=== PATIENT | female | born 1965 | race Two or more races ===

== ENCOUNTER → 2017-02-04 | Outpatient (CLI) | payer MEDICAID ==
--- NOTE | 2017-02-04 13:07 | RADIOLOGY REPORT (SQ) ---
EXAM DESCRIPTION: CHEST PA/LAT COMPLETED DATE/TIME: 02/04/2017 12:36 pm REASON FOR STUDY: WHEEZING (R06.2) COMPARISON: None. EXAM PARAMETERS: NUMBER OF VIEWS: two views TECHNIQUE: Digital Frontal and Lateral radiographic views of the chest acquired. RADIATION DOSE: NA LIMITATIONS: none FINDINGS: LUNGS AND PLEURA: No opacities, masses or pneumothorax. No pleural effusion. MEDIASTINUM AND HILAR STRUCTURES: No masses or contour abnormalities. HEART AND VASCULAR STRUCTURES: Heart normal size. No evidence for failure. BONES: No acute findings. HARDWARE: None in the chest. OTHER: No other significant finding. IMPRESSION: NO SIGNIFICANT RADIOGRAPHIC FINDING IN THE CHEST. TECHNICAL DOCUMENTATION: JOB ID: [id number] [employer]- All Rights Reserved
--- NOTE | 2017-02-04 13:49 | RADIOLOGY REPORT (SQ) ---
EXAM DESCRIPTION: SHOULDER RIGHT 2 OR MORE VIEWS COMPLETED DATE/TIME: 02/04/2017 12:36 pm REASON FOR STUDY: RIGHT SHOULDER PAIN (M25.511) M25.511 PAIN IN RIGHT SHOULDER R06.2 WHEEZING COMPARISON: None. NUMBER OF VIEWS: Three views. TECHNIQUE: Internal rotation, external rotation, and Y view images acquired of the right shoulder. LIMITATIONS: None. FINDINGS: MINERALIZATION: Normal. BONES: No acute fracture or dislocation. No worrisome bone lesions. JOINTS: No dislocation. VISUALIZED LUNGS AND RIBS: No pneumothorax. No rib fracture. SOFT TISSUES: No radiopaque foreign body. OTHER: No other significant finding. IMPRESSION: NEGATIVE STUDY OF THE RIGHT SHOULDER. NO RADIOGRAPHIC EVIDENCE OF ACUTE INJURY. TECHNICAL DOCUMENTATION: JOB ID: [id number] [employer]- All Rights Reserved
== END ==
LOC: RAD 12:14
PROVIDERS: ATTEND Family Medicine Geriatric Medicine
DX: M25.511 Pain in right shoulder (principal); R06.2 Wheezing
CPT/HCPCS: 71020

== ENCOUNTER 2017-02-24 19:26 | Emergency (ER) | payer MEDICAID ==
[2017-02-24 19:36] VITALS: BP 133/81
[2017-02-24] MEDS ORDERED: ONDANSETRON 4 MG TAB.RAPDIS PO ONE (19:57)
[2017-02-24] MEDS ORDERED: KETOROLAC TROMETHAMINE INJ/PF 30 MG/1 ML SDV IV ONE (20:12)
[2017-02-24] MEDS ORDERED: NORMAL SALINE 1000 ML 1,000 ML IV PRN (20:12)
--- NOTE | 2017-02-24 20:14 | ER Document Report ---
ED GI/ - General Chief Complaint: Abdominal Pain Stated Complaint: ABDOMINAL & BACK PAIN Time Seen by Provider: 02/24/17 19:58 Mode of Arrival: Ambulatory Information source: Patient TRAVEL OUTSIDE OF THE [place] IN LAST 30 DAYS: No - HPI Patient complains to provider of: Abdominal pain Onset: Other - 2 weeks Quality of pain: Achy, Cramping Severity at maximum: Moderate Severity in ED: Moderate Pain Level: 4 Location: Other - diffuse Associated symptoms: Nausea Relieved by: Denies Similar symptoms previously: No Recently seen / treated by doctor: No Notes: 02/24/17 20:13 51-year-old female who presents to the emergency room complaining of abdominal pain and cramping that been going on for the past 2 weeks and worsening in severity, she reports is worse when she is having intercourse with her , starts in the right side and radiates to the back and then the left side, she denies any vaginal bleeding or discharge, no blood in her urine or stools, has normal bowel movements on a daily basis, although she does report pressure in her vagina with a sensation of possible prolapse with bowel movements, she also has had some mild incontinence of urine, but denies dysuria or hematuria - Related Data Allergies/Adverse Reactions: Sulfa (Sulfonamide Antibiotics) Allergy (Verified 02/24/17 21:06) Past Medical History - General Information source: Patient - Social History Smoking Status: Current Every Day Smoker Family History: Reviewed & Not Pertinent Patient has suicidal ideation: No Patient has homicidal ideation: No Renal/ Medical History: Denies: Hx Peritoneal Dialysis Review of Systems - Review of Systems Constitutional: No symptoms reported EENT: No symptoms reported Cardiovascular: No symptoms reported Respiratory: No symptoms reported Gastrointestinal: See HPI Genitourinary: See HPI Female Genitourinary: No symptoms reported Musculoskeletal: No symptoms reported Skin: No symptoms reported Hematologic/Lymphatic: No symptoms reported Neurological/Psychological: No symptoms reported -: Yes All other systems reviewed and negative Physical Exam - Vital signs Vitals: Temp Pulse Resp BP Pulse Ox 98.1 F 70 18 133/81 H 95 02/24/17 19:35 02/24/17 19:35 02/24/17 19:35 02/24/17 19:35 02/24/17 19:35 Interpretation: Normal - General General appearance: Appears well, Alert - HEENT Head: Normocephalic, Atraumatic Eyes: Normal Pupils: PERRL - Respiratory Respiratory status: No respiratory distress Chest status: Nontender Breath sounds: Normal Chest palpation: Normal - Cardiovascular Rhythm: Regular Heart sounds: Normal auscultation Murmur: No - Abdominal Inspection: Normal Distension: No distension Bowel sounds: Normal Tenderness: Tender - Mild diffuse tenderness, increased in suprapubic region Organomegaly: No organomegaly - Back Back: Normal, Nontender - Extremities General upper extremity: Normal inspection, Nontender, Normal color, Normal ROM , Normal temperature General lower extremity: Normal inspection, Nontender, Normal color, Normal ROM , Normal temperature, Normal weight bearing. No: Enid's sign - Neurological Neuro grossly intact: Yes Cognition: Normal Orientation: AAOx4 Shahid Coma Scale Eye Opening: Spontaneous [place] Coma Scale Verbal: Oriented [place] Coma Scale Motor: Obeys Commands Shahid Coma Scale Total: 15 Speech: Normal Motor strength normal: LUE, RUE, LLE, RLE Sensory: Normal - Psychological Associated symptoms: Normal affect, Normal mood - Skin Skin Temperature: Warm Skin Moisture: Dry Skin Color: Normal Course - Re-evaluation Re-evalutation: 02/24/17 21:54 Imaging findings discussed with patient at bedside which are unremarkable except for fibroid uterus, she was advised to follow-up with [facility] or return if symptoms worsen, patient acknowledges understanding and agreement with this plan 02/24/17 21:55 - Vital Signs Vital signs: Temp Pulse Resp BP Pulse Ox 98.1 F 70 18 133/81 H 95 02/24/17 19:35 02/24/17 19:35 02/24/17 19:35 02/24/17 19:35 02/24/17 19:35 - Laboratory Result Diagrams: 02/24/17 20:55 02/24/17 20:10 Laboratory results interpreted by me: 02/24/17 02/24/17 02/24/17 20:10 20:39 20:55 RDW 15.2 H Seg Neutrophils % 40.8 L Lymphocytes % 49.0 H Est GFR (Non-Af Amer) 55 L Lipase 374.7 H Urine Urobilinogen 2.0 H - Diagnostic Test Radiology reviewed: Image reviewed, Reports reviewed Discharge - Discharge Clinical Impression: Fibroid Qualifiers: Uterine leiomyoma location: unspecified location Qualified Code(s): D25.9 - Leiomyoma of uterus, unspecified Condition: Stable Disposition: HOME, SELF-CARE Instructions: Pelvic Pain ([facility]), [facility] Additional Instructions: Follow up with your primary care provider in one to 2 days. Return to the emergency room immediately if symptoms worsen or any additional concerns. Prescriptions: Tramadol HCl/Acetaminophen [Ultracet 37.5 mg/325 mg Tablet] 1 each PO Q6 #20 tablet
[2017-02-24 20:34] LABS: ALANINE AMINOTRANSFERASE 25 U/L (9-52); ALBUMIN 4.3 g/dL (3.5-5.0); ALKALINE PHOSPHATASE 75 U/L (38-126); ANION GAP 11 (5-19); ASPARTATE AMINO TRANSFERASE 20 U/L (14-36); BILIRUBIN,DIRECT 0.4 mg/dL (0.0-0.4); BILIRUBIN,TOTAL 0.6 mg/dL (0.2-1.3); BLOOD UREA NITROGEN 16 mg/dL (7-20); CALCIUM 9.8 mg/dL (8.4-10.2); CARBON DIOXIDE 26 mmol/L (22-30); CHLORIDE 104 mmol/L (98-107); CREATININE RESULT 1.06 mg/dL (0.52-1.25); GLUCOSE 89 mg/dL (75-110); LIPASE 374.7 U/L (23-300); POTASSIUM 4.2 mmol/L (3.6-5.0); SODIUM 141.3 mmol/L (137-145); TOTAL PROTEIN 7.8 g/dL (6.3-8.2)
[2017-02-24 21:17] LABS: ABSOLUTE BASOPHILS # (AUTO) 0.1 10^3/uL (0.0-0.2); ABSOLUTE EOSINOPHILS # (AUTO) 0.2 10^3/uL (0.0-0.6); ABSOLUTE LYMPHOCYTES (AUTO) 4.3 10^3/uL (0.5-4.7); ABSOLUTE MONOCYTES (AUTO) 0.6 10^3/uL (0.1-1.4); ABSOLUTE NEUT (AUTO) 3.6 10^3/uL (1.7-8.2); BASOPHILS % (AUTO) 0.7 % (0-2); EOSINOPHILS % (AUTO) 2.1 % (0-6); HEMATOCRIT 38.7 % (36.0-47.0); HEMOGLOBIN 12.6 g/dL (12.0-15.5); HGB HCT DIFFERENCE -0.9; MEAN CORPUSCULAR HEMOGLOBIN 27.9 pg (27.0-33.4); MEAN CORPUSCULAR HGB CONC 32.6 g/dL (32.0-36.0); MEAN CORPUSCULAR VOLUME 86 fl (80-97); MONOCYTES % (AUTO) 7.4 % (3-13); RED BLOOD COUNT 4.53 10^6/uL (3.72-5.28); RED CELL DISTRIBUTION WIDTH 15.2 % (11.5-14.0); SEGMENTED NEUTROPHILS % (AUTO) 40.8 % (42-78); WHITE BLOOD COUNT 8.7 10^3/uL (4.0-10.5)
[2017-02-24 21:25] LABS: APPEARANCE,URINE SLIGHTLY-CLOUDY; BILIRUBIN,URINE NEGATIVE (NEGATIVE); GLUCOSE, URINE NEGATIVE (NEGATIVE); KETONES,URINE NEGATIVE (NEGATIVE); LEUKOCYTE ESTERASE,URINE NEGATIVE (NEGATIVE); NITRITE,URINE NEGATIVE (NEGATIVE); PROTEIN,URINE NEGATIVE (NEGATIVE); URINE SPECIFIC GRAVITY 1.029
--- NOTE | 2017-02-24 21:39 | RADIOLOGY REPORT (SQ) ---
EXAM DESCRIPTION: CT ABD/PELVIS WITH IV ONLY COMPLETED DATE/TIME: 02/24/2017 9:24 pm REASON FOR STUDY: abd pain COMPARISON: None. TECHNIQUE: CT scan of the abdomen and pelvis performed using helical scanning technique with dynamic intravenous contrast injection. No oral contrast. Images reviewed with lung, soft tissue, and bone windows. Reconstructed coronal and sagittal MPR images reviewed. Delayed images for evaluation of the urinary system also acquired. All images stored on PACS. All CT scanners at this facility use dose modulation, iterative reconstruction, and/or weight based d osing when appropriate to reduce radiation dose to as low as reasonably achievable (ALARA). [facility]: Dose Right [facility]: CareDose [facility]: Dose Right [facility]: Teradose 4D [facility]: CodersClan CONTRAST TYPE AND DOSE: contrast/concentration: Isovue 370.00 mg/ml; Total Contrast Delivered: 93.0 ml; Total Saline Delivered: 70.0 ml RENAL FUNCTION: Creatinine 1.06 RADIATION DOSE: Up-to-date CT equipment and radiation dose reduction techniques were employed. CTDIv ol: 12.8 mGy. DLP: 1209 mGy-cm.. LIMITATIONS: None. FINDINGS: LOWER CHEST: No significant findings. No nodules or infiltrates. LIVER: Normal size. No masses. No dilated ducts. SPLEEN: Normal size. No focal lesions. PANCREAS: No masses. No significant calcifications. No adjacent inflammation or peripancreatic fluid collections. Pancreatic duct not dilated. GALLBLADDER: No identified stones by CT criteria. No inflammatory changes to suggest cholecystitis. ADRENAL GLANDS: No significant masses or asymmetry. RIGHT KIDNEY AND URETER: No solid masses. No significant calcifications. No hydronephrosis or hyd roureter. LEFT KIDNEY AND URETER: No solid masses. No significant calcifications. No hydronephrosis or hydr oureter. AORTA AND VESSELS: No aneurysm. No dissection. Renal arteries, SMA, celiac without stenosis. RETROPERITONEUM: No retroperitoneal adenopathy, hemorrhage or masses. BOWEL AND PERITONEAL CAVITY: Diverticulosis without diverticulitis. APPENDIX: Distal appendicolith. PELVIS: Nodularuterus likely from fibroids. ABDOMINAL WALL: No masses. No hernias. BONES: No significant or acute findings. OTHER: No other significant finding. IMPRESSION: No acute findings. Fibroid uterus. It Distal appendicolith without dilatation of the appendix. TECHNICAL DOCUMENTATION: JOB ID: [id number] Quality ID # [id number]: Final reports with documentation of one or more dose reduction techniques (e.g., Au tomated exposure control, adjustment of the mA and/or kV according to patient size, use of iterative reconstruction technique) 2010 [employer]- All Rights Reserved
== END 2017-02-24 22:12 | disposition home or self-care (01) ==
LOC: ER 19:26
DX: D25.9 Leiomyoma of uterus, unspecified (principal); R10.9 Unspecified abdominal pain; M54.9 Dorsalgia, unspecified; F17.200 Nicotine dependence, unspecified, uncomplicated
CPT/HCPCS: 99284; 96361; 96374; 36415; 83690; 85025; 80053; 81001; 74177; S0119; J1885; J7030

== ENCOUNTER → 2017-10-26 | Outpatient (CLI) | payer MEDICAID ==
--- NOTE | 2017-10-26 16:33 | RADIOLOGY REPORT (SQ) ---
EXAM DESCRIPTION: CHEST PA/LATERAL COMPLETED DATE/TIME: 10/26/2017 4:06 pm REASON FOR STUDY: COUGH COMPARISON: None. EXAM PARAMETERS: NUMBER OF VIEWS: two views TECHNIQUE: Digital Frontal and Lateral radiographic views of the chest acquired. RADIATION DOSE: NA LIMITATIONS: none FINDINGS: LUNGS AND PLEURA: There is mild prominence of the basilar lung markings on the lateral vie w suggesting mild pneumonia probably in the right lower lobe. Lungs are otherwise clear. No effusio n. MEDIASTINUM AND HILAR STRUCTURES: No masses or contour abnormalities. HEART AND VASCULAR STRUCTURES: Heart normal size. No evidence for failure. BONES: No acute findings. HARDWARE: Postoperative changes in lower cervical spine. OTHER: No other significant finding. IMPRESSION: Possible mild right lower lobe pneumonia. TECHNICAL DOCUMENTATION: JOB ID: [id number] [employer]- All Rights Reserved Reading location - IP/workstation name: [email or web address]
== END ==
LOC: OD 15:51
PROVIDERS: ATTEND Family Medicine Geriatric Medicine
DX: J11.1 Influenza due to unidentified influenza virus with other respiratory manifestations (principal); R05 Cough
CPT/HCPCS: 71046

== ENCOUNTER → 2017-11-09 | Outpatient (CLI) | payer OTHER ==
[2017-11-09 14:52] LABS: ANION GAP 10 (5-19); BLOOD UREA NITROGEN 13 mg/dL (7-20); CALCIUM 10.1 mg/dL (8.4-10.2); CARBON DIOXIDE 30 mmol/L (22-30); CHLORIDE 103 mmol/L (98-107); GLUCOSE 105 mg/dL (75-110); POTASSIUM 4.3 mmol/L (3.6-5.0); SODIUM 142.7 mmol/L (137-145)
== END ==
LOC: OD 13:00
PROVIDERS: ATTEND Family Medicine Geriatric Medicine
DX: I10 Essential (primary) hypertension (principal); R25.2 Cramp and spasm; Z79.899 Other long term (current) drug therapy
CPT/HCPCS: 36415; 80048; 83735

== ENCOUNTER → 2017-11-22 | Outpatient (CLI) | payer OTHER ==
--- NOTE | 2017-11-22 13:05 | RADIOLOGY REPORT (SQ) ---
EXAM DESCRIPTION: CHEST PA/LATERAL COMPLETED DATE/TIME: 11/22/2017 11:05 am REASON FOR STUDY: WHEEZING COMPARISON: None. EXAM PARAMETERS: NUMBER OF VIEWS: two views TECHNIQUE: Digital Frontal and Lateral radiographic views of the chest acquired. RADIATION DOSE: NA LIMITATIONS: none FINDINGS: LUNGS AND PLEURA: No opacities, masses or pneumothorax. No pleural effusion. MEDIASTINUM AND HILAR STRUCTURES: No masses or contour abnormalities. HEART AND VASCULAR STRUCTURES: Heart normal size. No evidence for failure. BONES: No acute findings. HARDWARE: None in the chest. OTHER: No other significant finding. IMPRESSION: NO SIGNIFICANT RADIOGRAPHIC FINDING IN THE CHEST. TECHNICAL DOCUMENTATION: JOB ID: [id number] [employer]- All Rights Reserved Reading location - IP/workstation name: [facility]-RR
== END ==
LOC: OD 10:51
PROVIDERS: ATTEND Family Medicine Geriatric Medicine
DX: R06.2 Wheezing (principal)
CPT/HCPCS: 71046

== ENCOUNTER → 2017-12-06 | Outpatient (CLI) | payer OTHER ==
--- NOTE | 2017-12-06 09:43 | RADIOLOGY REPORT (SQ) ---
EXAM DESCRIPTION: CHEST PA/LATERAL COMPLETED DATE/TIME: 12/06/2017 9:31 am REASON FOR STUDY: LOBAR PNEUMONIA, UNSPECIFIED ORGANISM COMPARISON: Two-view chest 11/22/2017, 02/04/2017 EXAM PARAMETERS: NUMBER OF VIEWS: two views TECHNIQUE: Digital Frontal and Lateral radiographic views of the chest acquired. RADIATION DOSE: NA LIMITATIONS: none FINDINGS: LUNGS AND PLEURA: No opacities, masses or pneumothorax. No pleural effusion. MEDIASTINUM AND HILAR STRUCTURES: No masses or contour abnormalities. HEART AND VASCULAR STRUCTURES: Borderline cardiomegaly, stable BONES: No acute findings. HARDWARE: Lower cervical fusion hardware OTHER: No other significant finding. IMPRESSION: No dense consolidation worrisome for pneumonia. TECHNICAL DOCUMENTATION: JOB ID: [id number] [employer]- All Rights Reserved Reading location - IP/workstation name: [facility]-[email or web address]
== END ==
LOC: OD 09:20
PROVIDERS: ATTEND Family Medicine Geriatric Medicine
DX: J18.1 Lobar pneumonia, unspecified organism (principal)
CPT/HCPCS: 71046

== ENCOUNTER → 2018-04-25 | Outpatient (CLI) | payer OTHER ==
--- NOTE | 2018-04-25 13:01 | RADIOLOGY REPORT (SQ) ---
EXAM DESCRIPTION: RIBS RIGHT W/PA CHEST COMPLETED DATE/TIME: 04/25/2018 12:47 pm REASON FOR STUDY: RT RIB PAIN R07.81 PLEURODYNIA COMPARISON: None. TECHNIQUE: Frontal view of the chest and additional views of the right ribs acquired. NUMBER OF VIEWS: Five view. LIMITATIONS: None. FINDINGS: FRONTAL CXR: No pneumothorax. No pleural effusion. No atelectasis or infiltrates. RIBS: No acute displaced rib fractures. No lytic or blastic bony lesions. OTHER: Hardware anterior fusion visualized cervical spine. IMPRESSION: 1. No acute pulmonary findings. 2 NO PNEUMOTHORAX. 3. NO acute DISPLACED RIB FRACTURES. COMMENT: SITE OF TRAUMA/COMPLAINT MARKED/STAMP COMPLETED: YES. TECHNICAL DOCUMENTATION: JOB ID: [id number] [employer]- All Rights Reserved Reading location - IP/workstation name: [email or web address]
[2018-04-26 08:43] LABS: ALANINE AMINOTRANSFERASE 15 U/L (9-52); ANION GAP 11 (5-19); BLOOD UREA NITROGEN 12 mg/dL (7-20); CALCIUM 9.8 mg/dL (8.4-10.2); CARBON DIOXIDE 33 mmol/L (22-30); CHLORIDE 100 mmol/L (98-107); CHOLESTEROL 164.68 mg/dL (0-200); GLUCOSE 110 mg/dL (75-110); TRIGLYCERIDES 91 mg/dL (<150)
[2018-04-26 08:54] LABS: DIRECT LDL 85 mg/dL (<100)
== END ==
LOC: OD 12:22
PROVIDERS: ATTEND Family Medicine Geriatric Medicine
DX: R07.81 Pleurodynia (principal); I10 Essential (primary) hypertension; E78.5 Hyperlipidemia, unspecified; Z79.899 Other long term (current) drug therapy
CPT/HCPCS: 36415; 80048; 80061; 84460

== ENCOUNTER → 2018-06-08 | Outpatient (CLI) | payer OTHER ==
--- NOTE | 2018-06-08 17:55 | WOMENS IMAGING REPORT ---
EXAM DESCRIPTION: BILAT SCREENING MAMMO W/CAD COMPLETED DATE/TIME: 06/08/2018 9:30 am REASON FOR STUDY: SCREENING MAMMO Z12.31 ENCNTR SCREEN MAMMOGRAM FOR MALIGNANT NEOPLASM OF EMRE COMPARISON: None. TECHNIQUE: Standard craniocaudal and mediolateral oblique views of each breast recorded using digita l acquisition. LIMITATIONS: None. FINDINGS: No masses, calcifications or architectural distortion. No areas of suspicion. Read with the assistance of CAD. .[facility] - R2 [employer] Version 1.3 .[facility] - R2 [employer] Version 1.3 .[facility] - R2 [employer] Version 2.4 .[facility] - R2 [employer] Version 2.4 .[facility] - R2 [employer] Version 9.2 IMPRESSION: NORMAL MAMMOGRAM. BIRADS 1. BREAST DENSITY: b. There are scattered areas of fibroglandular density. BIRAD: 1 NEGATIVE RECOMMENDATION: ROUTINE SCREENING COMMENT: The patient has been notified of the results by letter per SA requirements. Additional no tification policies are in place for contacting patient with suspicious or incomplete findings. Quality ID #[id number]: The [place] [employer] recommends an annual screening mammogram for women aged 40 years or over. This facility utilizes a reminder system to ensure that all patients receive reminder letters, and/or direct phone calls for appointments. This includes reminders for routine scr eening mammograms, diagnostic mammograms, or other Breast Imaging Interventions when appropriate. Th is patient will be placed in the appropriate reminder system. The [employer] (ACR) has developed recommendations for screening MRI of the breast s in certain patient populations, to be used in conjunction with mammography. Breast MRI surveillanc e may be appropriate for women with more than 20% lifetime risk of developing breast cancer as deter mined by genetic testing, significant family history of the disease, or history of mantle radiation f or Hodgkins Disease. ACR Practice Guidelines 2008. TECHNICAL DOCUMENTATION: FINDING NUMBER: (1) ASSESSMENT: (1) JOB ID: [id number] [employer]- All Rights Reserved Reading location - IP/workstation name: [facility]-RR2
== END ==
LOC: WI 09:01
PROVIDERS: ATTEND Family Medicine Geriatric Medicine
DX: Z12.31 Encounter for screening mammogram for malignant neoplasm of breast (principal)
CPT/HCPCS: 77067

== ENCOUNTER 2018-06-12 10:51 | Emergency (ER) | payer OTHER ==
--- NOTE | 2018-06-12 11:14 | ER Document Report ---
ED Medical Screen (RME) - General Chief Complaint: Shortness Of Breath Stated Complaint: SHORT OF BREATH Time Seen by Provider: 06/12/18 11:06 Notes: Patient is a 53-year-old female that presents to the emergency department for chief complaint of shortness of breath and chest pain. Patient states last 2 nights has been having worsening chest pain and shortness of breath, she is more concerned about the shortness of breath, she states that she has COPD, and does wear his CPAP for obstructive sleep apnea. She describes the pain in her chest as a burning sensation in the middle of her chest, that is intermittent. She also complains of some tingling in the tips of her fingers, and around her lips as well, reports that she is been rather stressed out at home. Her has an LVAD, which has been stressful to help manage. ROS: Unless otherwise stated in this report the patient's positive and negative responses for review of systems for constitutional, eyes, ENT, cardiovascular, respiratory, gastrointestinal, neurological, genitourinary, musculoskeletal, and integumentary systems and related systems to the presenting problem are either as stated in the HPI or were not pertinent or were negative for the symptoms and/or complaints related to the presenting medical problem. PHYSICAL EXAMINATION: Vital signs reviewed. GENERAL: Well-appearing, well-nourished and in no acute distress. HEAD: Atraumatic, normocephalic. EYES: Pupils equal round extraocular movements intact, conjunctiva are normal. ENT: Nares patent NECK: Normal range of motion CV: Heart regular rate and rhythm LUNGS: No respiratory distress Musculoskeletal: Normal range of motion NEUROLOGICAL: Normal speech PSYCH: Appears anxious, appropriate MDM: Patient seen and examined for rapid initial assessment. Vital signs reviewed. A comprehensive ED assessment and evaluation of the patient, analysis of test results and completion of the medical decision making process will be conducted by additional ED providers. *Note is created using voice recognition software and may contain spelling, syntax or grammatical errors. TRAVEL OUTSIDE OF THE [place] IN LAST 30 DAYS: No - Related Data Allergies/Adverse Reactions: latex Allergy (Verified 06/12/18 10:54) Sulfa (Sulfonamide Antibiotics) Allergy (Verified 06/12/18 10:54) Past Medical History - Social History Frequency of alcohol use: None Drug Abuse: None - Past Medical History Cardiac Medical History: Reports: Hx Hypertension Pulmonary Medical History: Reports: Hx COPD Renal/ Medical History: Denies: Hx Peritoneal Dialysis Physical Exam - Vital signs Vitals: Temp Pulse Resp BP Pulse Ox 98.9 F 91 22 H 149/46 H 100 06/12/18 11:03 06/12/18 11:03 06/12/18 11:03 06/12/18 11:03 06/12/18 11:03 Course - Vital Signs Vital signs: Temp Pulse Resp BP Pulse Ox 98.9 F 91 22 H 149/46 H 100 06/12/18 11:03 06/12/18 11:03 06/12/18 11:03 06/12/18 11:03 06/12/18 11:03 Doctor's Discharge - Discharge Referrals: TYE LICEA MD [Primary Care Provider] - Follow up as needed
--- NOTE | 2018-06-12 11:52 | RADIOLOGY REPORT (SQ) ---
EXAM DESCRIPTION: CHEST 2 VIEWS COMPLETED DATE/TIME: 06/12/2018 11:32 am REASON FOR STUDY: chest pain, short of breath COMPARISON: None. EXAM PARAMETERS: NUMBER OF VIEWS: two views TECHNIQUE: Digital Frontal and Lateral radiographic views of the chest acquired. RADIATION DOSE: NA LIMITATIONS: none FINDINGS: LUNGS AND PLEURA: No opacities, masses or pneumothorax. No pleural effusion. MEDIASTINUM AND HILAR STRUCTURES: No masses or contour abnormalities. HEART AND VASCULAR STRUCTURES: Heart normal size. No evidence for failure. BONES: No acute findings. HARDWARE: None in the chest. OTHER: No other significant finding. IMPRESSION: NO ACUTE RADIOGRAPHIC FINDING IN THE CHEST. TECHNICAL DOCUMENTATION: JOB ID: [id number] [employer]- All Rights Reserved Reading location - IP/workstation name: [email or web address]
[2018-06-12 11:59] LABS: ABSOLUTE BASOPHILS # (AUTO) 0.1 10^3/uL (0.0-0.2); ABSOLUTE EOSINOPHILS # (AUTO) 0.1 10^3/uL (0.0-0.6); ABSOLUTE LYMPHOCYTES (AUTO) 2.1 10^3/uL (0.5-4.7); ABSOLUTE MONOCYTES (AUTO) 0.6 10^3/uL (0.1-1.4); ABSOLUTE NEUT (AUTO) 5.6 10^3/uL (1.7-8.2); BASOPHILS % (AUTO) 1.2 % (0-2); EOSINOPHILS % (AUTO) 1.5 % (0-6); HEMATOCRIT 40.4 % (36.0-47.0); HEMOGLOBIN 13.6 g/dL (12.0-15.5); LYMPHOCYTES % (AUTO) 24.9 % (13-45); MEAN CORPUSCULAR HEMOGLOBIN 27.1 pg (27.0-33.4); MEAN CORPUSCULAR HGB CONC 33.8 g/dL (32.0-36.0); MEAN CORPUSCULAR VOLUME 80 fl (80-97); MONOCYTES % (AUTO) 7.1 % (3-13); PLATELET COUNT 362 10^3/uL (150-450); RED BLOOD COUNT 5.03 10^6/uL (3.72-5.28); RED CELL DISTRIBUTION WIDTH 16.7 % (11.5-14.0); SEGMENTED NEUTROPHILS % (AUTO) 65.3 % (42-78); TOTAL CELLS COUNTED % (AUTO) 100 %; WHITE BLOOD COUNT 8.5 10^3/uL (4.0-10.5)
[2018-06-12] MEDS ORDERED: IPRATROPIUM/ALBUTEROL 0.5-2.5 MG/3 ML AMPUL NEB ONE (12:05)
[2018-06-12] MEDS ORDERED: ALBUTEROL SULFATE 0.083% NEB 2.5 MG/3 ML AMPUL NEB ONE (12:06)
[2018-06-12] MEDS ORDERED: METHYLPREDNISOLONE INJ 125 MG/2 ML SDV IV ONE (12:07)
--- NOTE | 2018-06-12 12:11 | ER Document Report ---
ED General - General Chief Complaint: Shortness Of Breath Stated Complaint: SHORT OF BREATH Time Seen by Provider: 06/12/18 11:06 TRAVEL OUTSIDE OF THE [place] IN LAST 30 DAYS: No - HPI Notes: Patient is a 53-year-old female that presents to the emergency department for chief complaint of shortness of breath and chest pain. She states over the last week she has felt like she was getting sick. She reports sinus congestion, cough, fatigue and increased shortness of breath. She does have COPD and obstructive sleep apnea. She has been using home albuterol 3 times daily. She has been compliant with her sleep apnea at night but states last night she had a difficult time keeping it on because she felt like she could not breathe with it on. This morning she started having an epigastric and midsternal chest pain that she describes as burning. The pain is nonradiating with no aggravating or relieving factors. She denies history of heart disease in the past. She states the burning sensation feels like acid reflux. She denies ever needing oxygen or admission to the hospital for her COPD in the past. Currently she states the burning chest pain has significantly resolved. She states she is currently trying to stop smoking and is down to 5 cigarettes daily compared to her previous 1.5 packs daily. Past Medical History: NILA, hypertension, hyperlipidemia, COPD Past Surgical History: Back surgery, neck surgery Social History: Daily tobacco, occasional alcohol, denies drug use Family History: Reviewed and noncontributory for presenting illness Allergies: Reviewed, see documented allergy list. REVIEW OF SYSTEMS: CONSTITUTIONAL : No fever No chills No diaphoresis No recent illness EENT: No vision changes congestion No sore throat CARDIOVASCULAR: chest pain No palpitations RESPIRATORY: shortness of breath cough No difficulty breathing GASTROINTESTINAL: No abdominal pain No nausea No vomiting No diarrhea GENITOURINARY: No dysuria No hematuria No difficulty urinating MUSCULOSKELETAL: No back pain No leg pain No arm pain SKIN: No rashes No lesions LYMPHATIC: No swollen, enlarged glands. NEUROLOGICAL: No lightheadedness No headache No weakness No paresthesias PSYCHIATRIC: No anxiety No depression PHYSICAL EXAMINATION: Vital signs reviewed, nursing noted reviewed. GENERAL: Well-appearing, well-nourished and in no acute distress. HEAD: Atraumatic, normocephalic. EYES: Eyes appear normal, extraocular movements intact, sclera anicteric, conjunctiva are normal. ENT: nares patent, oropharynx clear without exudates. Moist mucous membranes. NECK: Normal range of motion, supple without lymphadenopathy LUNGS: Breath sounds wheezing auscultation bilaterally and equal. Dry cough, no accessory muscle use HEART: Regular rate and rhythm ABDOMEN: Soft, nontender, normoactive bowel sounds. No rebound, guarding, or rigidity. No masses appreciated. EXTREMITIES: Nontender, good range of motion, no pitting or edema. NEUROLOGICAL: No focal neurological deficits. Moves all extremities spontaneously Motor and sensory grossly intact on exam. PSYCH: Normal mood, normal affect. SKIN: Warm, Dry, normal turgor, no rashes or lesions noted on exposed skin - Related Data Allergies/Adverse Reactions: latex Allergy (Verified 06/12/18 10:54) Sulfa (Sulfonamide Antibiotics) Allergy (Verified 06/12/18 10:54) Past Medical History - Social History Smoking Status: Current Every Day Smoker Frequency of alcohol use: None Drug Abuse: None Family History: Reviewed & Not Pertinent Patient has suicidal ideation: No Patient has homicidal ideation: No - Past Medical History Cardiac Medical History: Reports: Hx Hypertension Pulmonary Medical History: Reports: Hx COPD Renal/ Medical History: Denies: Hx Peritoneal Dialysis Review of Systems - Review of Systems Notes: Dictated Physical Exam - Vital signs Vitals: Temp Pulse Resp BP Pulse Ox 98.9 F 91 22 H 149/46 H 100 06/12/18 11:03 06/12/18 11:03 06/12/18 11:03 06/12/18 11:03 06/12/18 11:03 - Notes Notes: Dictated Course - Re-evaluation Re-evalutation: 06/12/18 12:10 Vitals reviewed. Nursing notes reviewed. EKG shows no ST elevation. Patient given albuterol, DuoNeb, and Solu-Medrol for wheezing and shortness of breath. 06/12/18 16:28 Patient reevaluated. She had significant improvement of symptoms after aerosols and saw you Medrol. She has been oxygenating well on room air. She had a negative repeat troponin. Patients chest x-ray and remainder of her workup is unremarkable. She has expressed a significant amount of stress at home. She is taking care of her who has an LVAD and is verbally abusive to her at times. Some of her symptoms are related to stress and anxiety. I recommended that she follow with her primary care doctor for reevaluation and to discuss possibly seeing a counselor. She will continue using her aerosols at home for her COPD. She will be given a spacer for her albuterol inhaler. She will return for new or worsening symptoms. She was discharged in stable condition. Laboratory 06/12/18 06/12/18 06/12/18 11:50 11:50 11:50 WBC 8.5 RBC 5.03 Hgb 13.6 Hct 40.4 MCV 80 MCH 27.1 MCHC 33.8 RDW 16.7 H Plt Count 362 Seg Neutrophils % 65.3 Lymphocytes % 24.9 Monocytes % 7.1 Eosinophils % 1.5 Basophils % 1.2 Absolute Neutrophils 5.6 Absolute Lymphocytes 2.1 Absolute Monocytes 0.6 Absolute Eosinophils 0.1 Absolute Basophils 0.1 Sodium 139.6 Potassium 3.6 Chloride 100 Carbon Dioxide 26 Anion Gap 14 BUN 9 Creatinine 1.08 Est GFR ( Amer) > 60 Est GFR (Non-Af Amer) 53 L Glucose 100 Calcium 10.0 Total Bilirubin 1.0 Direct Bilirubin 0.3 Neonat Total Bilirubin Not Reportable Neonat Direct Bilirubin Not Reportable Neonat Indirect Bili Not Reportable AST 21 ALT 22 Alkaline Phosphatase 89 Troponin I < 0.012 Total Protein 8.0 Albumin 4.5 06/12/18 15:08 WBC RBC Hgb Hct MCV MCH MCHC RDW Plt Count Seg Neutrophils % Lymphocytes % Monocytes % Eosinophils % Basophils % Absolute Neutrophils Absolute Lymphocytes Absolute Monocytes Absolute Eosinophils Absolute Basophils Sodium Potassium Chloride Carbon Dioxide Anion Gap BUN Creatinine Est GFR ( Amer) Est GFR (Non-Af Amer) Glucose Calcium Total Bilirubin Direct Bilirubin Neonat Total Bilirubin Neonat Direct Bilirubin Neonat Indirect Bili AST ALT Alkaline Phosphatase Troponin I < 0.012 Total Protein Albumin Chest X-Ray 06/12/18 11:12 IMPRESSION: NO ACUTE RADIOGRAPHIC FINDING IN THE CHEST. - Vital Signs Vital signs: Temp Pulse Resp BP Pulse Ox 98.9 F 91 17 149/46 H 98 06/12/18 11:03 06/12/18 11:03 06/12/18 14:00 06/12/18 11:03 06/12/18 14:00 - Laboratory Result Diagrams: 06/12/18 11:50 06/12/18 11:50 Laboratory results interpreted by me: 06/12/18 06/12/18 11:50 11:50 RDW 16.7 H Est GFR (Non-Af Amer) 53 L - EKG Interpretation by Me Additional EKG results interpreted by me: 06/12/18 12:10 1100: Interpreted by myself, normal sinus rhythm, rate 81, normal axis, no ectopy, normal QT and VA intervals Discharge - Discharge Clinical Impression: Shortness of breath Chest pain Qualifiers: Chest pain type: unspecified Qualified Code(s): R07.9 - Chest pain, unspecified Condition: Stable Disposition: HOME, SELF-CARE Instructions: Anxiety ([facility]), Chest Pain of Unclear Cause ([facility]), Chronic Obstructive Lung Disease ([facility]) Additional Instructions: Please return to the emergency department if you have any worsening, or concern of your symptoms. Please return to the emergency department if you develop chest pain, difficulty breathing, severe abdominal pain, or ongoing vomiting. Please follow-up with your primary care physician in 2-3 days and any other recommended physicians. If prescribed, take all medications as directed. If you have any questions or concerns do not hesitate to return the emergency department for evaluation. Take ibuprofen as directed on the bottle as needed for chest pain. Take time to destress at home and occasionally focus on taking slow deep breaths. You can apply warm compresses to your chest and stretch as needed for chest pain. If your chest pain changes or you develop new or worsening symptoms please return to the emergency room for reevaluation. Referrals: TYE LICEA MD [Primary Care Provider] - Follow up in 3-5 days
[2018-06-12 12:19] LABS: ALANINE AMINOTRANSFERASE 22 U/L (9-52); ALBUMIN 4.5 g/dL (3.5-5.0); ALKALINE PHOSPHATASE 89 U/L (38-126); ANION GAP 14 (5-19); ASPARTATE AMINO TRANSFERASE 21 U/L (14-36); BILIRUBIN,DIRECT 0.3 mg/dL (0.0-0.4); BLOOD UREA NITROGEN 9 mg/dL (7-20); CARBON DIOXIDE 26 mmol/L (22-30); CHLORIDE 100 mmol/L (98-107); GLUCOSE 100 mg/dL (75-110); POTASSIUM 3.6 mmol/L (3.6-5.0); SODIUM 139.6 mmol/L (137-145)
[2018-06-12 17:48] VITALS: BP 156/96
--- NOTE | 2018-06-12 19:46 | EKG REPORT ---
SEVERITY:- NORMAL ECG - SINUS RHYTHM : Confirmed by: Elizabeth Paulson MD 12-Jun-2018 19:45:34
== END 2018-06-12 17:50 | disposition home or self-care (01) ==
LOC: ER 10:51
DX: R06.02 Shortness of breath (principal); R07.9 Chest pain, unspecified; R09.81 Nasal congestion; R05 Cough; R53.83 Other fatigue; R10.13 Epigastric pain; F17.210 Nicotine dependence, cigarettes, uncomplicated; F17.200 Nicotine dependence, unspecified, uncomplicated; I10 Essential (primary) hypertension; J44.9 Chronic obstructive pulmonary disease, unspecified
CPT/HCPCS: 93005; 94640 ×2; 99285; 96374; 36415; 85025; 80053; 84484; 71046; 93010; J2930; J7620

== ENCOUNTER → 2018-08-11 | Outpatient (CLI) | payer OTHER ==
--- NOTE | 2018-08-11 14:15 | RADIOLOGY REPORT (SQ) ---
EXAM DESCRIPTION: CT ABD/PELVIS WITH IV ORAL COMPLETED DATE/TIME: 08/11/2018 1:59 pm REASON FOR STUDY: DIVERTICULITIS (K57.92) K57.92 DVTRCLI OF INTEST, PART UNSP, W/O PERF OR ABSCESS W/O COMPARISON: None. TECHNIQUE: CT scan of the abdomen and pelvis performed with intravenous and oral contrast using will anabelle scanning technique with dynamic intravenous contrast injection. Images reviewed with lung, soft t issue, and bone windows. Reconstructed coronal and sagittal MPR images reviewed. Delayed images for e valuation of the urinary system also acquired. All images stored on PACS. All CT scanners at this facility use dose modulation, iterative reconstruction, and/or weight based d osing when appropriate to reduce radiation dose to as low as reasonably achievable (ALARA). [facility]: Dose Right [facility]: CareDose [facility]: Dose Right [facility]: Teradose 4D [facility]: [employer] CONTRAST TYPE AND DOSE: contrast/concentration: Isovue 370.00 mg/ml; Total Contrast Delivered: 100.0 ml; Total Saline Delivered: 45.7 ml RENAL FUNCTION: Creatinine 1.2 RADIATION DOSE: CT Rad equipment meets quality standard of care and radiation dose reduction techniq ues were employed. CTDIvol: 14.5 - 16.6 mGy. DLP: 1507 mGy-cm. . LIMITATIONS: None. FINDINGS: LOWER CHEST: No significant findings. No nodules or infiltrates. LIVER: Small cyst right lobe. SPLEEN: Normal size. No focal lesions. PANCREAS: No masses. No significant calcifications. No adjacent inflammation or peripancreatic fluid collections. Pancreatic duct not dilated. GALLBLADDER: No identified stones by CT criteria. No inflammatory changes to suggest cholecystitis. ADRENAL GLANDS: No significant masses or asymmetry. RIGHT KIDNEY AND URETER: No solid masses. No significant calcifications. No hydronephrosis or hyd roureter. LEFT KIDNEY AND URETER: No solid masses. No significant calcifications. No hydronephrosis or hydr oureter. AORTA AND VESSELS: No aneurysm. No dissection. Renal arteries, SMA, celiac without stenosis. RETROPERITONEUM: No retroperitoneal adenopathy, hemorrhage or masses. BOWEL AND PERITONEAL CAVITY: Mesenteric inflammation associated with sigmoid colon segment containing diverticula. No abscess. No ascites or free air. APPENDIX: Normal. PELVIS: No significant masses. Normal bladder. No free fluid. ABDOMINAL WALL: Small umbilical hernia containing nondilated bowel. BONES: No acute findings. OTHER: No other significant finding. IMPRESSION: Sigmoid diverticulitis. TECHNICAL DOCUMENTATION: JOB ID: [id number] Quality ID # [id number]: Final reports with documentation of one or more dose reduction techniques (e.g., Au tomated exposure control, adjustment of the mA and/or kV according to patient size, use of iterative reconstruction technique) 2010 [employer]- All Rights Reserved Reading location - IP/workstation name: [email or web address]
== END ==
LOC: RAD 11:04
PROVIDERS: ATTEND Family Medicine Geriatric Medicine
DX: K57.92 Diverticulitis of intestine, part unspecified, without perforation or abscess without bleeding (principal)
CPT/HCPCS: 74177; 82565

== ENCOUNTER → 2018-09-12 | Outpatient (CLI) | payer OTHER ==
--- NOTE | 2018-09-12 13:16 | RADIOLOGY REPORT (SQ) ---
EXAM DESCRIPTION: C SP 4 OR 5 VIEWS COMPLETED DATE/TIME: 09/12/2018 12:42 pm REASON FOR STUDY: CERVICALGIA M54.2 CERVICALGIA COMPARISON: None. NUMBER OF VIEWS: Five views. TECHNIQUE: AP, lateral, obliques and odontoid radiographic images acquired of the cervical spine. LIMITATIONS: None. FINDINGS: MINERALIZATION: Normal. ALIGNMENT: Anatomic. VERTEBRAE: Vertebral bodies of normal height. DISCS: Disc implants from C3 to C7 FORAMINA: No osteophytes or foraminal narrowing. LATERAL AND POSTERIOR ELEMENTS: Facets, lateral masses and spinous processes without significant find ings. HARDWARE: Anterior plate from C3 to C6. Additional anterior hardware at C6-7. Disc implants. SOFT TISSUES: No masses or calcifications. Lung apices clear. OTHER: No other significant finding. IMPRESSION: Surgical changes. No acute findings. TECHNICAL DOCUMENTATION: JOB ID: [id number] [employer]- All Rights Reserved Reading location - IP/workstation name: [email or web address]
== END ==
LOC: OD 12:14
PROVIDERS: ATTEND Family Medicine Geriatric Medicine
DX: M54.2 Cervicalgia (principal)
CPT/HCPCS: 72050

== ENCOUNTER → 2018-10-11 | Outpatient (CLI) | payer OTHER ==
[2018-10-11 14:28] LABS: ALANINE AMINOTRANSFERASE 19 U/L (9-52); ANION GAP 9 (5-19); BLOOD UREA NITROGEN 9 mg/dL (7-20); CALCIUM 9.6 mg/dL (8.4-10.2); CARBON DIOXIDE 32 mmol/L (22-30); CHLORIDE 100 mmol/L (98-107); CHOLESTEROL 179.42 mg/dL (0-200); GLUCOSE 104 mg/dL (75-110); POTASSIUM 4.1 mmol/L (3.6-5.0); SODIUM 141.3 mmol/L (137-145); TRIGLYCERIDES 99 mg/dL (<150)
[2018-10-11 14:38] LABS: DIRECT LDL 99 mg/dL (<100)
== END ==
LOC: OD 13:24
PROVIDERS: ATTEND Family Medicine Geriatric Medicine
DX: E78.5 Hyperlipidemia, unspecified (principal); I10 Essential (primary) hypertension; Z79.899 Other long term (current) drug therapy
CPT/HCPCS: 36415; 80048; 80061; 83735; 84460

== ENCOUNTER 2018-11-11 08:54 | Inpatient (IN) | payer OTHER ==
[2018-11-11] MEDS ORDERED: NORMAL SALINE 1000 ML 1,000 ML IV ONE ×2 (10:26→17:23)
[2018-11-11] MEDS ORDERED: ONDANSETRON HCL INJ/PF 4 MG/2 ML SDV IV ONE (10:27)
[2018-11-11] MEDS ORDERED: KETOROLAC TROMETHAMINE INJ/PF 30 MG/1 ML SDV IV ONE (10:27)
--- NOTE | 2018-11-11 10:28 | ER Document Report ---
ED Medical Screen (RME) - General Chief Complaint: Abdominal Pain >50 Stated Complaint: ABDOMINAL/VAGINAL PAIN Time Seen by Provider: 11/11/18 10:22 Primary Care Provider: YULIET MARTINEZ MD [Primary Care Provider] - Follow up as needed TRAVEL OUTSIDE OF THE [place] IN LAST 30 DAYS: No - HPI Notes: 11/11/18 10:27 Patient is a 53-year-old female that presents to the emergency department for chief complaint of abdominal pain. Patient reports history of diverticulitis in July. She states she is now having a suprapubic abdominal pain that radiates to her right and left lower quadrant. She endorses associated dysuria, nausea and diarrhea. ROS: GENERAL: Denies fever of chills CV: Denies chest pain PHYSICAL EXAMINATION: GENERAL: Well-appearing, well-nourished and in no acute distress. HEAD: Atraumatic, normocephalic. EYES: Pupils equal round extraocular movements intact, conjunctiva are normal. ENT: Nares patent NECK: Normal range of motion LUNGS: No respiratory distress Musculoskeletal: Normal range of motion NEUROLOGICAL: Normal speech, normal gait. PSYCH: Normal mood, normal affect. MDM: Patient seen and examined for rapid initial assessment. Vital signs reviewed. A comprehensive ED assessment and evaluation of the patient, analysis of test results and completion of the medical decision making process will be conducted by additional ED providers. - Related Data Allergies/Adverse Reactions: latex Allergy (Verified 06/12/18 10:54) Sulfa (Sulfonamide Antibiotics) Allergy (Verified 06/12/18 10:54) Past Medical History - Past Medical History Cardiac Medical History: Reports: Hx Hypertension Pulmonary Medical History: Reports: Hx COPD Renal/ Medical History: Denies: Hx Peritoneal Dialysis Physical Exam - Vital signs Vitals: Temp Pulse Resp BP Pulse Ox 99.2 F 96 18 171/93 H 97 11/11/18 09:10 11/11/18 09:10 11/11/18 09:10 11/11/18 09:10 11/11/18 09:10 Course - Vital Signs Vital signs: Temp Pulse Resp BP Pulse Ox 99.2 F 96 18 171/93 H 97 11/11/18 09:10 11/11/18 09:10 11/11/18 09:10 11/11/18 09:10 11/11/18 09:10 Doctor's Discharge - Discharge Referrals: YULIET MARTINEZ MD [Primary Care Provider] - Follow up as needed
[2018-11-11] MEDS ORDERED: MORPHINE SULFATE 10 MG/ML INJ IV ONE (12:14)
[2018-11-11 12:37] LABS: ABSOLUTE BASOPHILS # (AUTO) 0.1 10^3/uL (0.0-0.2); ABSOLUTE LYMPHOCYTES (AUTO) 2.4 10^3/uL (0.5-4.7); ABSOLUTE MONOCYTES (AUTO) 0.5 10^3/uL (0.1-1.4); ABSOLUTE NEUT (AUTO) 8.4 10^3/uL (1.7-8.2); BASOPHILS % (AUTO) 0.7 % (0-2); EOSINOPHILS % (AUTO) 0.4 % (0-6); HEMATOCRIT 39.2 % (36.0-47.0); LYMPHOCYTES % (AUTO) 20.7 % (13-45); MEAN CORPUSCULAR HGB CONC 33.1 g/dL (32.0-36.0); MEAN CORPUSCULAR VOLUME 82 fl (80-97); MONOCYTES % (AUTO) 4.3 % (3-13); RED BLOOD COUNT 4.81 10^6/uL (3.72-5.28); RED CELL DISTRIBUTION WIDTH 15.7 % (11.5-14.0); SEGMENTED NEUTROPHILS % (AUTO) 73.9 % (42-78); TOTAL CELLS COUNTED % (AUTO) 100 %; WHITE BLOOD COUNT 11.4 10^3/uL (4.0-10.5)
[2018-11-11 12:53] LABS: ALANINE AMINOTRANSFERASE 26 U/L (9-52); ALBUMIN 4.7 g/dL (3.5-5.0); ALKALINE PHOSPHATASE 104 U/L (38-126); ANION GAP 12 (5-19); ASPARTATE AMINO TRANSFERASE 32 U/L (14-36); BILIRUBIN,DIRECT 0.3 mg/dL (0.0-0.4); BILIRUBIN,TOTAL 0.9 mg/dL (0.2-1.3); BLOOD UREA NITROGEN 14 mg/dL (7-20); CALCIUM 9.9 mg/dL (8.4-10.2); CARBON DIOXIDE 22 mmol/L (22-30); CHLORIDE 104 mmol/L (98-107); GLUCOSE 111 mg/dL (75-110); LIPASE 122.6 U/L (23-300); POTASSIUM 3.9 mmol/L (3.6-5.0); SODIUM 138.2 mmol/L (137-145); TOTAL PROTEIN 7.9 g/dL (6.3-8.2)
[2018-11-11 12:56] LABS: PLATELET COUNT 228 10^3/uL (150-450)
[2018-11-11 15:20] LABS: APPEARANCE,URINE CLEAR; BILIRUBIN,URINE NEGATIVE (NEGATIVE); COLOR,URINE YELLOW; GLUCOSE, URINE NEGATIVE (NEGATIVE); KETONES,URINE 20 mg/dL (NEGATIVE); LEUKOCYTE ESTERASE,URINE NEGATIVE (NEGATIVE); NITRITE,URINE NEGATIVE (NEGATIVE); PROTEIN,URINE NEGATIVE (NEGATIVE); URINE SPECIFIC GRAVITY 1.015; UROBILINOGEN,URINE NEGATIVE mg/dL (<2.0)
--- NOTE | 2018-11-11 15:35 | RADIOLOGY REPORT (SQ) ---
EXAM DESCRIPTION: CT ABD/PELVIS WITH IV ORAL COMPLETED DATE/TIME: 11/11/2018 3:20 pm REASON FOR STUDY: lower abd pain, nausea, diarrhea COMPARISON: 08/11/2018 TECHNIQUE: CT scan of the abdomen and pelvis performed with intravenous and oral contrast using will anabelle scanning technique with dynamic intravenous contrast injection. Images reviewed with lung, soft t issue, and bone windows. Reconstructed coronal and sagittal MPR images reviewed. Delayed images for e valuation of the urinary system also acquired. All images stored on PACS. All CT scanners at this facility use dose modulation, iterative reconstruction, and/or weight based d osing when appropriate to reduce radiation dose to as low as reasonably achievable (ALARA). [facility]: Dose Right [facility]: CareDose [facility]: Dose Right [facility]: Teradose 4D [facility]: [employer] CONTRAST TYPE AND DOSE: contrast/concentration: Isovue 350.00 mg/ml; Total Contrast Delivered: 100.0 ml; Total Saline Delivered: 40.2 ml RENAL FUNCTION: BUN 14 creatinine 1.2 RADIATION DOSE: CT Rad equipment meets quality standard of care and radiation dose reduction techniq ues were employed. CTDIvol: 17.8 - 20.5 mGy. DLP: 2020 mGy-cm. . LIMITATIONS: None. FINDINGS: LOWER CHEST: No significant findings. No nodules or infiltrates. LIVER: Small cyst right lobe. No significant abnormality. SPLEEN: Normal size. No focal lesions. PANCREAS: No masses. No significant calcifications. No adjacent inflammation or peripancreatic fluid collections. Pancreatic duct not dilated. GALLBLADDER: No identified stones by CT criteria. No inflammatory changes to suggest cholecystitis. ADRENAL GLANDS: No significant masses or asymmetry. RIGHT KIDNEY AND URETER: No solid masses. No significant calcifications. No hydronephrosis or hyd roureter. LEFT KIDNEY AND URETER: No solid masses. No significant calcifications. No hydronephrosis or hydr oureter. AORTA AND VESSELS: No aneurysm. No dissection. Renal arteries, SMA, celiac without stenosis. RETROPERITONEUM: No retroperitoneal adenopathy, hemorrhage or masses. BOWEL AND PERITONEAL CAVITY: 2.4 x 4.1 cm diverticular abscess near the midline at level of pelvic br im, image 56. Not amenable to CT-guided drainage due to posterior location and surrounding vital str uctures. No free air or ascites. APPENDIX: Not visualized. PELVIS: No significant masses. Normal bladder. No free fluid. ABDOMINAL WALL: Small fat containing umbilical hernia. BONES: No significant or acute findings. OTHER: No other significant finding. IMPRESSION: Diverticular abscess unamenable to CT-guided drainage. Surgical consultation is recomme nded. TECHNICAL DOCUMENTATION: JOB ID: [id number] Quality ID # [id number]: Final reports with documentation of one or more dose reduction techniques (e.g., Au tomated exposure control, adjustment of the mA and/or kV according to patient size, use of iterative reconstruction technique) 2010 [employer]- All Rights Reserved Reading location - IP/workstation name: [email or web address]-
[2018-11-11] MEDS ORDERED: HYDROMORPHONE HCL INJ/PF 2 MG/ML AMPULE IV ONE (15:40)
[2018-11-11] MEDS ORDERED: CIPROFLOXACIN 400 MG/D5W RTU 400 MG/200 ML RTUPB IV ONE (15:40)
--- NOTE | 2018-11-11 15:43 | ER Document Report ---
ED GI/ - General Chief Complaint: Abdominal Pain >50 Stated Complaint: ABDOMINAL/VAGINAL PAIN Time Seen by Provider: 11/11/18 10:22 Mode of Arrival: Ambulatory Information source: Patient Notes: Pt is a 53 year old female with a history of diverticulitis in July and a history of uterine fibroids without recent issue who presents to the ER today for lower abdominal pain, worse in the center, but spreading into her left lower back and across her entire lower abdomen. She denies any burning with urination, fever, chills, hx of kidney stones. TRAVEL OUTSIDE OF THE [place] IN LAST 30 DAYS: No - Related Data Allergies/Adverse Reactions: latex Allergy (Verified 06/12/18 10:54) Sulfa (Sulfonamide Antibiotics) Allergy (Verified 06/12/18 10:54) Past Medical History - General Information source: Patient - Social History Smoking Status: Former Smoker Chew tobacco use (# tins/day): No Frequency of alcohol use: None Drug Abuse: None Family History: Reviewed & Not Pertinent Patient has suicidal ideation: No Patient has homicidal ideation: No - Past Medical History Cardiac Medical History: Reports: Hx Hypertension Pulmonary Medical History: Reports: Hx COPD Renal/ Medical History: Denies: Hx Peritoneal Dialysis Review of Systems - Review of Systems Constitutional: No symptoms reported EENT: No symptoms reported Cardiovascular: No symptoms reported Respiratory: No symptoms reported Gastrointestinal: See HPI Genitourinary: No symptoms reported Female Genitourinary: No symptoms reported Musculoskeletal: No symptoms reported Skin: No symptoms reported Hematologic/Lymphatic: No symptoms reported Neurological/Psychological: No symptoms reported Physical Exam - Vital signs Vitals: Temp Pulse Resp BP Pulse Ox 99.2 F 96 18 171/93 H 97 11/11/18 09:10 11/11/18 09:10 11/11/18 09:10 11/11/18 09:10 11/11/18 09:10 - Notes Notes: PHYSICAL EXAMINATION: GENERAL: uncomfortable-appearing, tearful, but in no acute distress. HEAD: Atraumatic, normocephalic. EYES: Pupils equal round and reactive to light, extraocular movements intact, sclera anicteric, conjunctiva are normal. NECK: Normal range of motion, supple without lymphadenopathy LUNGS: CTAB and equal. No wheezes rales or rhonchi. HEART: Regular rate and rhythm without murmurs ABDOMEN: Soft, moderate periumibical, llq tenderness. No guarding, no rebound BACK: no vertebral tenderness, normal ROM GI/: no CVA tenderness EXTREMITIES: Normal range of motion, no pitting edema. No cyanosis. NEUROLOGICAL: Cranial nerves grossly intact. Normal sensory/motor exams. PSYCH: Normal mood, normal affect. SKIN: Warm, Dry, normal turgor, no rashes or lesions noted Course - Re-evaluation Re-evalutation: 11/11/18 12:59 Pt has an elevated WBC and a diverticular abscess on CT abd pelvis with IV and oral contrast. Dr. Singh accepts admission at this time, started on cipro and flagyl. - Vital Signs Vital signs: Temp Pulse Resp BP Pulse Ox 97.9 F 76 15 146/89 H 96 11/11/18 21:50 11/11/18 21:50 11/11/18 21:50 11/11/18 21:50 11/11/18 21:50 - Laboratory Result Diagrams: 11/11/18 12:27 11/11/18 12:27 Laboratory results interpreted by me: 11/11/18 11/11/18 11/11/18 12:27 12:27 14:02 WBC 11.4 H RDW 15.7 H Absolute Neutrophils 8.4 H Est GFR ( Amer) 59 L Est GFR (Non-Af Amer) 49 L Glucose 111 H Urine Ketones 20 H Urine Blood SMALL H Discharge - Discharge Clinical Impression: Colonic diverticular abscess Condition: Stable Disposition: ADMITTED INPATIENT Admitting Provider: Ileneist Marina singh Unit Admitted: OR
[2018-11-11] MEDS ORDERED: METRONIDAZOLE 500 MG/NS RTU 250 MG in CONTAINER,EMPTY 1 EACH IV SCH (16:00)
[2018-11-11] MEDS ORDERED: LORAZEPAM INJ 2 MG/1 ML VIAL IV ONE (16:38)
--- NOTE | 2018-11-11 17:22 | PDOC H&P ---
History of Present Illness Admission Date/PCP: 11/11/18 15:56 LUIS LICEA MD Patient complains of: abdominal pains History of Present Illness: MARCUS TOBIN is a 53 year old female who was diagnosed by her Family physician in of diverticulitis and given po antibiotics. She improved but has not been completely back to normal according to her . Yesterday started c/o vague lower abdominal discomfort and went to ED last night when she developed more pains from umbilicus going down to her vagina associated with nausea and BM maybe with blood. Denies any fever or vomiting. No dysuria nor vaginal discharge. CT scan of abd/pelvis shoed a 2x4 cm pelvic diverticular abscess not amenable to percutaneous drainage. Past Medical History Cardiac Medical History: Reports: Hypertension Pulmonary Medical History: Reports: Chronic Obstructive Pulmonary Disease (COPD) Past Surgical History Past Surgical History: Reports: Orthopedic Surgery - Cervical spine fusion x 2 and lumbar spine surgery. Social History Smoking Status: Former Smoker - stopped smoking but started smoking again past 2 weeks. Prescribed CPAP but rarely uses it. Family History Family History: Reviewed & Not Pertinent Parental Family History Reviewed: Yes - DM on father side Children Family History Reviewed: No Sibling(s) Family History Reviewed.: No Medication/Allergy Home Medications: Tramadol HCl/Acetaminophen [Ultracet 37.5 mg/325 mg Tablet] 1 each PO Q6 #20 tablet 02/24/17 Allergies/Adverse Reactions: latex Allergy (Verified 06/12/18 10:54) Sulfa (Sulfonamide Antibiotics) Allergy (Verified 06/12/18 10:54) Review of Systems Constitutional: PRESENT: as per HPI Eyes: PRESENT: other - no visual/hearing changes Cardiovascular: PRESENT: other - no chest pains Respiratory: PRESENT: cough Gastrointestinal: PRESENT: abdominal pain, nausea Genitourinary: PRESENT: as per HPI Musculoskeletal: PRESENT: back pain Psychiatric: PRESENT: anxiety Physical Exam Vital Signs: Temp Pulse Resp BP Pulse Ox 98.1 F 85 18 162/98 H 94 11/11/18 16:14 11/11/18 16:14 11/11/18 14:36 11/11/18 16:14 11/11/18 16:14 Intake & Output 11/10/18 11/11/18 11/12/18 06:59 06:59 06:59 Intake Total 1000 Balance 1000 Weight 93.2 kg General appearance: PRESENT: severe distress - 4/5 pains Head exam: PRESENT: atraumatic Eye exam: PRESENT: conjunctiva pink Mouth exam: PRESENT: moist Neck exam: PRESENT: full ROM Respiratory exam: PRESENT: clear to auscultation latoya Cardiovascular exam: PRESENT: RRR Pulses: PRESENT: normal radial pulses Vascular exam: PRESENT: normal capillary refill GI/Abdominal exam: PRESENT: soft, tenderness - suprapubic area Rectal exam: PRESENT: deferred Extremities exam: PRESENT: full ROM Musculoskeletal exam: PRESENT: ambulatory Neurological exam: PRESENT: alert, oriented to person, oriented to place, oriented to time, oriented to situation Psychiatric exam: PRESENT: anxious Skin exam: PRESENT: normal color, warm Results Laboratory Results: 11/11/18 12:27 11/11/18 12:27 11/11/18 11/11/18 11/11/18 12:27 12:27 14:02 WBC 11.4 H RBC 4.81 Hgb 13.0 Hct 39.2 MCV 82 MCH 27.0 MCHC 33.1 RDW 15.7 H Plt Count 228 Seg Neutrophils % 73.9 Lymphocytes % 20.7 Monocytes % 4.3 Eosinophils % 0.4 Basophils % 0.7 Absolute Neutrophils 8.4 H Absolute Lymphocytes 2.4 Absolute Monocytes 0.5 Absolute Eosinophils 0.0 Absolute Basophils 0.1 Sodium 138.2 Potassium 3.9 Chloride 104 Carbon Dioxide 22 Anion Gap 12 BUN 14 Creatinine 1.17 Est GFR ( Amer) 59 L Est GFR (Non-Af Amer) 49 L Glucose 111 H Calcium 9.9 Total Bilirubin 0.9 AST 32 ALT 26 Alkaline Phosphatase 104 Total Protein 7.9 Albumin 4.7 Lipase 122.6 Urine Color YELLOW Urine Appearance CLEAR Urine pH 6.0 Ur Specific [place] 1.015 Urine Protein NEGATIVE Urine Glucose (UA) NEGATIVE Urine Ketones 20 H Urine Blood SMALL H Urine Nitrite NEGATIVE Ur Leukocyte Esterase NEGATIVE Urine WBC (Auto) 2 Urine RBC (Auto) 3 Impressions: Abdomen/Pelvis CT 11/11/18 00:00 IMPRESSION: Diverticular abscess unamenable to CT-guided drainage. Surgical consultation is recommended. Assessment & Plan - Diagnosis (1) Hypertension Is this a current diagnosis for this admission?: Yes (2) Colonic diverticular abscess Is this a current diagnosis for this admission?: Yes - Time Time Spent: 30 to 50 Minutes - Inpatient Certification Medical Necessity: Need For IV Fluids, Need for Pain Control, Need for IV Antibiotics - Plan Summary Plan Summary: 53 yo female with abdominal pains and a 2x4 cm diverticular abscess not amenable to percutaneous drainage. Films reviewed with Radiologist Dr Wolfe. Plan Start IV antibiotics and IV Fluids Bowel rest PRN pain meds with Toradol and prn narcotics. Monitor closely, may need emergency explore lap.
[2018-11-11] MEDS ORDERED: GLUCAGON,HUMAN RECOMB 1 MG INJ SUBCUT PRN (17:23)
[2018-11-11] MEDS ORDERED: DEXTROSE 50%-WATER 25 GM/50 ML DISP.SYRIN IV PRN ×2 (17:23)
[2018-11-11] MEDS ORDERED: DEXTROSE 40% GEL 15 GM TUBE PO PRN ×2 (17:23)
[2018-11-11] MEDS: NORMAL SALINE 1000 ML 1,000 ML IV ONE ×2 (17:45→19:26)
[2018-11-11] MEDS: HYDROMORPHONE HCL INJ/PF 2 MG/ML AMPULE IV PRN (19:24)
[2018-11-11] MEDS: METRONIDAZOLE 500 MG/NS RTU 500 MG/100 ML RTUPB IV SCH (19:26)
[2018-11-11] MEDS: ONDANSETRON HCL INJ/PF 4 MG/2 ML SDV IV PRN (19:48)
--- NOTE | 2018-11-11 20:09 | RADIOLOGY REPORT (SQ) ---
EXAM DESCRIPTION: XR CHEST 2 VIEWS COMPLETED DATE/TME: 11/11/2018 17:26 CLINICAL HISTORY: 53 years, Female, Pre-op uses CPAP COMPARISON: None. NUMBER OF VIEWS: TECHNIQUE: LIMITATIONS: None. FINDINGS: There is possible mild left basilar atelectasis. The lungs are otherwise clear. The heart and mediastinum are unremarkable. Pulmonary vascularity appears normal. There are postoperative changes in the lower cervical spine. IMPRESSION: Possible mild left basilar atelectasis. copyright 2010 [employer]- All Rights Reserved
[2018-11-12] MEDS ORDERED: DIAZEPAM 5 MG TABLET PO ONE (00:30)
[2018-11-12] MEDS: METRONIDAZOLE 500 MG/NS RTU 500 MG/100 ML RTUPB IV SCH ×5 (00:46→23:10)
[2018-11-12] MEDS: HYDROMORPHONE HCL INJ/PF 2 MG/ML AMPULE IV PRN ×4 (06:50→23:10)
[2018-11-12 07:42] LABS: ABSOLUTE LYMPHOCYTES (AUTO) 2.7 10^3/uL (0.5-4.7); ABSOLUTE MONOCYTES (AUTO) 0.6 10^3/uL (0.1-1.4); ABSOLUTE NEUT (AUTO) 6.5 10^3/uL (1.7-8.2); BASOPHILS % (AUTO) 0.5 % (0-2); EOSINOPHILS % (AUTO) 0.4 % (0-6); HEMATOCRIT 34.4 % (36.0-47.0); HEMOGLOBIN 11.6 g/dL (12.0-15.5); LYMPHOCYTES % (AUTO) 27.4 % (13-45); MEAN CORPUSCULAR HEMOGLOBIN 27.6 pg (27.0-33.4); MEAN CORPUSCULAR HGB CONC 33.8 g/dL (32.0-36.0); MEAN CORPUSCULAR VOLUME 82 fl (80-97); MONOCYTES % (AUTO) 5.8 % (3-13); PLATELET COUNT 267 10^3/uL (150-450); SEGMENTED NEUTROPHILS % (AUTO) 65.9 % (42-78); TOTAL CELLS COUNTED % (AUTO) 100 %; WHITE BLOOD COUNT 9.8 10^3/uL (4.0-10.5)
[2018-11-12 08:01] LABS: ALANINE AMINOTRANSFERASE 17 U/L (9-52); ALBUMIN 4.4 g/dL (3.5-5.0); ALKALINE PHOSPHATASE 84 U/L (38-126); ANION GAP 12 (5-19); ASPARTATE AMINO TRANSFERASE 21 U/L (14-36); BILIRUBIN,DIRECT 0.4 mg/dL (0.0-0.4); BILIRUBIN,TOTAL 0.9 mg/dL (0.2-1.3); BLOOD UREA NITROGEN 9 mg/dL (7-20); CALCIUM 9.6 mg/dL (8.4-10.2); CARBON DIOXIDE 26 mmol/L (22-30); CHLORIDE 100 mmol/L (98-107); GLUCOSE 91 mg/dL (75-110); LIPASE 85.6 U/L (23-300); POTASSIUM 3.7 mmol/L (3.6-5.0); SODIUM 137.8 mmol/L (137-145); TOTAL PROTEIN 7.2 g/dL (6.3-8.2)
[2018-11-12] MEDS: KETOROLAC TROMETHAMINE INJ/PF 30 MG/1 ML SDV IV PRN ×3 (08:27→21:40)
[2018-11-12] MEDS ORDERED: CETIRIZINE 10 MG TABLET PO PRN (11:06)
--- NOTE | 2018-11-12 12:12 | PDOC CONSULTATION ---
History of Present Illness Admission Date/PCP: 11/11/18 15:56 LUIS LICEA MD History of Present Illness: MARCUS TOBIN is a 53 year old female This is 53 years old patient who presente d with abdominal pain. Patient had been treated with antibiotic for diverticulitis by her primary care physician. She presented to ER with worsening of abdominal pain. Her CT scan shows diverticular abscess which is not visible to drain it by interventional radiologist. She is admitted by the surgical team and the hospitalist service consulted to comanage her medical problem. Past Medical History Cardiac Medical History: Reports: Hypertension Pulmonary Medical History: Reports: Chronic Obstructive Pulmonary Disease (COPD) Past Surgical History Past Surgical History: Reports: Orthopedic Surgery - Cervical spine fusion x 2 and lumbar spine surgery. Social History Smoking Status: Former Smoker - Advance Directive Resuscitation Status: Full Code Family History Family History: Reviewed & Not Pertinent Parental Family History Reviewed: Yes Children Family History Reviewed: Yes Sibling(s) Family History Reviewed.: Yes Medication/Allergy Home Medications: Cetirizine HCl [Zyrtec 10 mg Tablet] 1 tab PO DAILYP PRN 11/11/18 Hydrochlorothiazide [Hydrodiuril 25 mg Tablet] 25 mg PO DAILY 11/11/18 Omeprazole 40 mg PO Q6AM 11/11/18 Acetaminophen [Non-Aspirin Extra Strength] 500 mg PO Q12HP PRN 11/12/18 Bupropion HCl [Wellbutrin Xl 150 mg 24hr Tablet] 150 mg PO DAILY 11/12/18 Hydroxyzine HCl [Atarax 25 mg Tablet] 25 mg PO HSP PRN 11/12/18 Lorazepam [Ativan 0.5 mg Tablet] 0.5 mg PO Q8HP PRN 11/12/18 Potassium Chloride [Klor-Con] 20 meq PO DAILY 11/12/18 Rosuvastatin Calcium [Crestor 10 mg Tablet] 10 mg PO DAILY 11/12/18 Tramadol HCl/Acetaminophen [Ultracet 37.5 mg/325 mg Tablet] 1 tab PO Q8HP PRN 11/12/18 Trazodone HCl [Desyrel 50 mg Tablet] 50 mg PO HSP PRN 11/12/18 Allergies/Adverse Reactions: latex Allergy (Verified 06/12/18 10:54) Sulfa (Sulfonamide Antibiotics) Allergy (Verified 06/12/18 10:54) Review of Systems Constitutional: ABSENT: chills, fever(s), headache(s), weight gain, weight loss Eyes: ABSENT: visual disturbances Ears: ABSENT: hearing changes Cardiovascular: ABSENT: chest pain, dyspnea on exertion, edema, orthropnea, palpitations Respiratory: ABSENT: cough, hemoptysis Gastrointestinal: PRESENT: abdominal pain Genitourinary: ABSENT: dysuria, hematuria Musculoskeletal: ABSENT: joint swelling Integumentary: ABSENT: rash, wounds Neurological: ABSENT: abnormal gait, abnormal speech, confusion, dizziness, f ocal weakness, syncope Psychiatric: ABSENT: anxiety, depression, homidical ideation, suicidal ideation Endocrine: ABSENT: cold intolerance, heat intolerance, polydipsia, polyuria Hematologic/Lymphatic: ABSENT: easy bleeding, easy bruising Physical Exam Vital Signs: Temp Pulse Resp BP Pulse Ox 98.5 F 87 16 159/88 H 97 11/12/18 07:42 11/12/18 07:42 11/12/18 07:42 11/12/18 07:42 11/12/18 07:42 Intake & Output 11/11/18 11/12/18 11/13/18 06:59 06:59 06:59 Intake Total 2680 Output Total 150 Balance 2530 Weight 94.8 kg General appearance: PRESENT: no acute distress, well-developed, well-nourished Head exam: PRESENT: atraumatic, normocephalic Eye exam: PRESENT: conjunctiva pink, EOMI, PERRLA. ABSENT: scleral icterus Ear exam: PRESENT: normal external ear exam Mouth exam: PRESENT: moist, tongue midline Neck exam: ABSENT: carotid bruit, JVD, lymphadenopathy, thyromegaly Respiratory exam: PRESENT: clear to auscultation latoya. ABSENT: rales, rhonchi, wheezes Cardiovascular exam: PRESENT: RRR. ABSENT: diastolic murmur, rubs, systolic murmur Pulses: PRESENT: normal dorsalis pedis pul Vascular exam: PRESENT: normal capillary refill GI/Abdominal exam: PRESENT: normal bowel sounds, soft, tenderness. ABSENT: distended, guarding, mass, organolmegaly, rebound Rectal exam: PRESENT: deferred Extremities exam: PRESENT: full ROM. ABSENT: calf tenderness, clubbing, pedal edema Neurological exam: PRESENT: alert, awake, oriented to person, oriented to place, oriented to time, oriented to situation, CN II-XII grossly intact. ABSENT: motor sensory deficit Psychiatric exam: PRESENT: appropriate affect, normal mood. ABSENT: homicidal ideation, suicidal ideation Skin exam: PRESENT: dry, intact, warm. ABSENT: cyanosis, rash Results Laboratory Results: 11/12/18 06:22 11/12/18 06:22 11/11/18 11/11/18 11/11/18 12:27 12:27 14:02 WBC 11.4 H RBC 4.81 Hgb 13.0 Hct 39.2 MCV 82 MCH 27.0 MCHC 33.1 RDW 15.7 H Plt Count 228 Seg Neutrophils % 73.9 Lymphocytes % 20.7 Monocytes % 4.3 Eosinophils % 0.4 Basophils % 0.7 Absolute Neutrophils 8.4 H Absolute Lymphocytes 2.4 Absolute Monocytes 0.5 Absolute Eosinophils 0.0 Absolute Basophils 0.1 Sodium 138.2 Potassium 3.9 Chloride 104 Carbon Dioxide 22 Anion Gap 12 BUN 14 Creatinine 1.17 Est GFR ( Amer) 59 L Est GFR (Non-Af Amer) 49 L Glucose 111 H Calcium 9.9 Total Bilirubin 0.9 AST 32 ALT 26 Alkaline Phosphatase 104 Total Protein 7.9 Albumin 4.7 Lipase 122.6 Urine Color YELLOW Urine Appearance CLEAR Urine pH 6.0 Ur Specific [place] 1.015 Urine Protein NEGATIVE Urine Glucose (UA) NEGATIVE Urine Ketones 20 H Urine Blood SMALL H Urine Nitrite NEGATIVE Ur Leukocyte Esterase NEGATIVE Urine WBC (Auto) 2 Urine RBC (Auto) 3 11/12/18 11/12/18 06:22 06:22 WBC 9.8 RBC 4.20 Hgb 11.6 L Hct 34.4 L MCV 82 MCH 27.6 MCHC 33.8 RDW 16.0 H Plt Count 267 Seg Neutrophils % 65.9 Lymphocytes % 27.4 Monocytes % 5.8 Eosinophils % 0.4 Basophils % 0.5 Absolute Neutrophils 6.5 Absolute Lymphocytes 2.7 Absolute Monocytes 0.6 Absolute Eosinophils 0.0 Absolute Basophils 0.0 Sodium 137.8 Potassium 3.7 Chloride 100 Carbon Dioxide 26 Anion Gap 12 BUN 9 Creatinine 1.13 Est GFR ( Amer) > 60 Est GFR (Non-Af Amer) 51 L Glucose 91 Calcium 9.6 Total Bilirubin 0.9 AST 21 ALT 17 Alkaline Phosphatase 84 Total Protein 7.2 Albumin 4.4 Lipase 85.6 Urine Color Urine Appearance Urine pH Ur Specific [place] Urine Protein Urine Glucose (UA) Urine Ketones Urine Blood Urine Nitrite Ur Leukocyte Esterase Urine WBC (Auto) Urine RBC (Auto) Impressions: Abdomen/Pelvis CT 11/11/18 00:00 IMPRESSION: Diverticular abscess unamenable to CT-guided drainage. Surgical consultation is recommended. Chest X-Ray 11/11/18 17:26 IMPRESSION: Possible mild left basilar atelectasis. copyright 2010 [employer]- All Rights Reserved Assessment & Plan - Diagnosis (1) Colonic diverticular abscess Is this a current diagnosis for this admission?: Yes Plan: Management per surgical team. (2) Hypertension Qualifiers: Hypertension type: essential hypertension Qualified Code(s): I10 - Essential (primary) hypertension Is this a current diagnosis for this admission?: Yes Plan: Continue her home medication (3) COPD (chronic obstructive pulmonary disease) Qualifiers: Emphysema type: unspecified Is this a current diagnosis for this admission?: Yes Plan: We will put her on as needed bronchodilator.
[2018-11-12] MEDS ORDERED: HYDROCHLOROTHIAZIDE 25 MG TABLET PO ONE (15:00)
[2018-11-12] MEDS: CIPROFLOXACIN 400 MG/D5W RTU 400 MG/200 ML RTUPB IV SCH (17:04)
--- NOTE | 2018-11-12 19:24 | PDOC PROGRESS REPORT ---
Subjective Progress Note for:: 11/12/18 Subjective:: Feels better. Has passage of flatus with some discomfort Reason For Visit: DIVERTICULAR ABSCESS, HYPERTENSION Physical Exam Vital Signs: Temp Pulse Resp BP Pulse Ox 99.0 F 86 16 157/84 H 98 11/12/18 15:00 11/12/18 15:00 11/12/18 15:00 11/12/18 15:00 11/12/18 15:00 Intake & Output 11/11/18 11/12/18 11/13/18 06:59 06:59 06:59 Intake Total 2680 598 Output Total 150 200 Balance 2530 398 Weight 94.8 kg Exam: Abdomen is soft with less tenderness suprapubic area Results Laboratory Results: 11/12/18 06:22 11/12/18 06:22 11/12/18 11/12/18 06:22 06:22 WBC 9.8 RBC 4.20 Hgb 11.6 L Hct 34.4 L MCV 82 MCH 27.6 MCHC 33.8 RDW 16.0 H Plt Count 267 Seg Neutrophils % 65.9 Lymphocytes % 27.4 Monocytes % 5.8 Eosinophils % 0.4 Basophils % 0.5 Absolute Neutrophils 6.5 Absolute Lymphocytes 2.7 Absolute Monocytes 0.6 Absolute Eosinophils 0.0 Absolute Basophils 0.0 Sodium 137.8 Potassium 3.7 Chloride 100 Carbon Dioxide 26 Anion Gap 12 BUN 9 Creatinine 1.13 Est GFR ( Amer) > 60 Est GFR (Non-Af Amer) 51 L Glucose 91 Calcium 9.6 Total Bilirubin 0.9 AST 21 ALT 17 Alkaline Phosphatase 84 Total Protein 7.2 Albumin 4.4 Lipase 85.6 Impressions: Abdomen/Pelvis CT 11/11/18 00:00 IMPRESSION: Diverticular abscess unamenable to CT-guided drainage. Surgical consultation is recommended. Chest X-Ray 11/11/18 17:26 IMPRESSION: Possible mild left basilar atelectasis. copyright 2010 [employer]- All Rights Reserved Assessment & Plan - Diagnosis (1) Hypertension Qualifiers: Hypertension type: essential hypertension Qualified Code(s): I10 - Essential (primary) hypertension Is this a current diagnosis for this admission?: Yes (2) Colonic diverticular abscess Is this a current diagnosis for this admission?: Yes - Time Time Spent with patient: 15-24 minutes - Inpatient Certification Medical Necessity: Need For IV Fluids, Need for Pain Control, Need for IV Antibiotics, Risk of Complication if Not Cared For in Hospital - Plan Summary Plan Summary: Continue IV antibiotics Start Clears
[2018-11-12] MEDS: LORAZEPAM 0.5 MG TABLET PO PRN (21:39)
[2018-11-12] MEDS ORDERED: (PENDING PHARMACY ID) (Lovastatin [Mevacor] 10 MG) PO SCH (22:00)
[2018-11-13] MEDS: CIPROFLOXACIN 400 MG/D5W RTU 400 MG/200 ML RTUPB IV SCH ×2 (05:46→18:10)
[2018-11-13] MEDS: PANTOPRAZOLE SODIUM 40 MG TABLET.DR PO SCH (05:47)
[2018-11-13] MEDS: KETOROLAC TROMETHAMINE INJ/PF 30 MG/1 ML SDV IV PRN (05:47)
[2018-11-13] MEDS: METRONIDAZOLE 500 MG/NS RTU 500 MG/100 ML RTUPB IV SCH ×4 (05:48→23:52)
[2018-11-13 06:22] LABS: ABSOLUTE EOSINOPHILS # (AUTO) 0.1 10^3/uL (0.0-0.6); ABSOLUTE MONOCYTES (AUTO) 0.6 10^3/uL (0.1-1.4); ABSOLUTE NEUT (AUTO) 4.8 10^3/uL (1.7-8.2); BASOPHILS % (AUTO) 0.3 % (0-2); EOSINOPHILS % (AUTO) 1.3 % (0-6); HEMATOCRIT 33.7 % (36.0-47.0); HEMOGLOBIN 11.6 g/dL (12.0-15.5); LYMPHOCYTES % (AUTO) 26.6 % (13-45); MEAN CORPUSCULAR HEMOGLOBIN 27.9 pg (27.0-33.4); MEAN CORPUSCULAR HGB CONC 34.3 g/dL (32.0-36.0); MEAN CORPUSCULAR VOLUME 81 fl (80-97); MONOCYTES % (AUTO) 8.3 % (3-13); PLATELET COUNT 273 10^3/uL (150-450); RED BLOOD COUNT 4.15 10^6/uL (3.72-5.28); RED CELL DISTRIBUTION WIDTH 15.9 % (11.5-14.0); SEGMENTED NEUTROPHILS % (AUTO) 63.5 % (42-78); TOTAL CELLS COUNTED % (AUTO) 100 %; WHITE BLOOD COUNT 7.6 10^3/uL (4.0-10.5)
[2018-11-13 06:46] LABS: ANION GAP 10 (5-19); BLOOD UREA NITROGEN 5 mg/dL (7-20); CALCIUM 9.3 mg/dL (8.4-10.2); CARBON DIOXIDE 30 mmol/L (22-30); CHLORIDE 99 mmol/L (98-107); GLUCOSE 107 mg/dL (75-110); POTASSIUM 3.1 mmol/L (3.6-5.0); SODIUM 138.5 mmol/L (137-145)
[2018-11-13] MEDS: ENOXAPARIN SODIUM INJ 30 MG/0.3 ML DISP.SYRIN SUBCUT SCH (09:26)
[2018-11-13] MEDS: HYDROCHLOROTHIAZIDE 25 MG TABLET PO SCH (09:26)
[2018-11-13] MEDS ORDERED: (PENDING PHARMACY ID) (Tramadol Hcl/Acetaminophen [Ultracet 37.5 Mg/325 Mg Tablet] 1 TAB) PO PRN (10:39)
[2018-11-13] MEDS ORDERED: (PENDING PHARMACY ID) (Hydroxyzine Hcl [Atarax 25 Mg Tablet] 25 MG) PO PRN (10:39)
[2018-11-13] MEDS: HYDROMORPHONE HCL INJ/PF 2 MG/ML AMPULE IV PRN ×3 (10:41→21:52)
--- NOTE | 2018-11-13 10:43 | PDOC PROGRESS REPORT ---
Subjective Progress Note for:: 11/13/18 Subjective:: Patient still complaining of some abdominal pain. Her lab shows mild hypokalemia with potassium 3.10 and it is repleted. I reconciled her home medications. Reason For Visit: DIVERTICULAR ABSCESS, HYPERTENSION Physical Exam Vital Signs: Temp Pulse Resp BP Pulse Ox 98.9 F 74 20 147/77 H 96 11/13/18 07:36 11/13/18 07:36 11/13/18 07:36 11/13/18 07:36 11/13/18 07:36 Intake & Output 11/12/18 11/13/18 11/14/18 06:59 06:59 06:59 Intake Total 2680 1368 Output Total 150 200 Balance 2530 1168 Weight 94.8 kg 98.3 kg General appearance: PRESENT: no acute distress Head exam: PRESENT: atraumatic Eye exam: PRESENT: conjunctiva pink Mouth exam: PRESENT: moist Neck exam: ABSENT: carotid bruit, JVD, lymphadenopathy, thyromegaly Respiratory exam: PRESENT: clear to auscultation latoya. ABSENT: rales, rhonchi, wheezes Cardiovascular exam: PRESENT: RRR. ABSENT: diastolic murmur, rubs, systolic murmur GI/Abdominal exam: PRESENT: tenderness Neurological exam: PRESENT: alert, awake, oriented to time, oriented to situation Psychiatric exam: PRESENT: normal mood Results Laboratory Results: 11/13/18 05:44 11/13/18 05:44 11/13/18 11/13/18 05:44 05:44 WBC 7.6 RBC 4.15 Hgb 11.6 L Hct 33.7 L MCV 81 MCH 27.9 MCHC 34.3 RDW 15.9 H Plt Count 273 Seg Neutrophils % 63.5 Lymphocytes % 26.6 Monocytes % 8.3 Eosinophils % 1.3 Basophils % 0.3 Absolute Neutrophils 4.8 Absolute Lymphocytes 2.0 Absolute Monocytes 0.6 Absolute Eosinophils 0.1 Absolute Basophils 0.0 Sodium 138.5 Potassium 3.1 L Chloride 99 Carbon Dioxide 30 Anion Gap 10 BUN 5 L Creatinine 1.05 Est GFR ( Amer) > 60 Est GFR (Non-Af Amer) 55 L Glucose 107 Calcium 9.3 Impressions: Abdomen/Pelvis CT 11/11/18 00:00 IMPRESSION: Diverticular abscess unamenable to CT-guided drainage. Surgical consultation is recommended. Chest X-Ray 11/11/18 17:26 IMPRESSION: Possible mild left basilar atelectasis. copyright 2011 [employer]- All Rights Reserved Assessment & Plan - Diagnosis (1) Colonic diverticular abscess Is this a current diagnosis for this admission?: Yes Plan: Management per surgical team. (2) Hypertension Qualifiers: Hypertension type: essential hypertension Qualified Code(s): I10 - Essential (primary) hypertension Is this a current diagnosis for this admission?: Yes Plan: Continue her home medication (3) COPD (chronic obstructive pulmonary disease) Qualifiers: Emphysema type: unspecified Is this a current diagnosis for this admission?: Yes Plan: We will put her on as needed bronchodilator. (4) Hyperlipidemia Qualifiers: Hyperlipidemia type: unspecified Qualified Code(s): E78.5 - Hyperlipidemia, unspecified Is this a current diagnosis for this admission?: Yes Plan: Continue her home statin
[2018-11-13] MEDS ORDERED: POTASSIUM CHLORIDE 10 MEQ CAPSULE.ER PO ONE (11:00)
[2018-11-13] MEDS ORDERED: HYDROXYZINE HCL 10 MG TABLET PO PRN (11:01)
--- NOTE | 2018-11-13 11:34 | PDOC PROGRESS REPORT ---
Subjective Progress Note for:: 11/13/18 Subjective:: In general patient feels better. She is tolerating clear liquids and has had a bowel movement. Reason For Visit: DIVERTICULAR ABSCESS, HYPERTENSION Physical Exam Vital Signs: Temp Pulse Resp BP Pulse Ox 98.9 F 74 20 147/77 H 96 11/13/18 07:36 11/13/18 07:36 11/13/18 07:36 11/13/18 07:36 11/13/18 07:36 Intake & Output 11/12/18 11/13/18 11/14/18 06:59 06:59 06:59 Intake Total 2680 1368 Output Total 150 200 Balance 2530 1168 Weight 94.8 kg 98.3 kg General appearance: PRESENT: mild distress GI/Abdominal exam: PRESENT: other - Somewhat diffusely tender but no rigidity; patient states less tender during palpation today than yesterday Results Laboratory Results: 11/13/18 05:44 11/13/18 05:44 11/13/18 11/13/18 05:44 05:44 WBC 7.6 RBC 4.15 Hgb 11.6 L Hct 33.7 L MCV 81 MCH 27.9 MCHC 34.3 RDW 15.9 H Plt Count 273 Seg Neutrophils % 63.5 Lymphocytes % 26.6 Monocytes % 8.3 Eosinophils % 1.3 Basophils % 0.3 Absolute Neutrophils 4.8 Absolute Lymphocytes 2.0 Absolute Monocytes 0.6 Absolute Eosinophils 0.1 Absolute Basophils 0.0 Sodium 138.5 Potassium 3.1 L Chloride 99 Carbon Dioxide 30 Anion Gap 10 BUN 5 L Creatinine 1.05 Est GFR ( Amer) > 60 Est GFR (Non-Af Amer) 55 L Glucose 107 Calcium 9.3 Impressions: Abdomen/Pelvis CT 11/11/18 00:00 IMPRESSION: Diverticular abscess unamenable to CT-guided drainage. Surgical consultation is recommended. Chest X-Ray 11/11/18 17:26 IMPRESSION: Possible mild left basilar atelectasis. copyright 2010 [employer]- All Rights Reserved Assessment & Plan - Diagnosis (1) Colonic diverticular abscess Is this a current diagnosis for this admission?: Yes Plan: Impression: In cheek classification 1 complicated diverticulitis with pericolonic abscess not amenable to IR drainage , clinically improving with restricted diet, intravenous antibiotics. Recommendations: 1. Continue current care 2. Increase ambulation 3. Continue venous antibiotics; Explained to patient she is better but not resolved.
[2018-11-13] MEDS: POTASSIUM CHLORIDE 10 MEQ CAPSULE.ER PO SCH (12:31)
[2018-11-13] MEDS: BUPROPION HCL 75 MG TABLET PO SCH (17:01)
[2018-11-13] MEDS: LORAZEPAM 0.5 MG TABLET PO PRN (20:21)
[2018-11-13] MEDS: ATORVASTATIN CALCIUM 20 MG TABLET PO SCH (21:54)
[2018-11-14] MEDS: HYDROMORPHONE HCL INJ/PF 2 MG/ML AMPULE IV PRN ×2 (01:54→08:37)
[2018-11-14] MEDS: KETOROLAC TROMETHAMINE INJ/PF 30 MG/1 ML SDV IV PRN ×2 (01:55→23:51)
[2018-11-14] MEDS: METRONIDAZOLE 500 MG/NS RTU 500 MG/100 ML RTUPB IV SCH ×4 (05:11→23:41)
[2018-11-14] MEDS: CIPROFLOXACIN 400 MG/D5W RTU 400 MG/200 ML RTUPB IV SCH ×2 (05:11→18:23)
[2018-11-14] MEDS: PANTOPRAZOLE SODIUM 40 MG TABLET.DR PO SCH (05:11)
[2018-11-14 05:38] LABS: ANION GAP 12 (5-19); BLOOD UREA NITROGEN 4 mg/dL (7-20); CALCIUM 9.7 mg/dL (8.4-10.2); CARBON DIOXIDE 27 mmol/L (22-30); CHLORIDE 97 mmol/L (98-107); GLUCOSE 135 mg/dL (75-110); POTASSIUM 3.3 mmol/L (3.6-5.0); SODIUM 135.7 mmol/L (137-145)
[2018-11-14] MEDS: LORAZEPAM 0.5 MG TABLET PO PRN (08:37)
[2018-11-14] MEDS ORDERED: (PENDING PHARMACY ID) (Potassium Chloride [Klor-Con] 20 MEQ) PO SCH (10:00)
[2018-11-14] MEDS ORDERED: (PENDING PHARMACY ID) (Bupropion Hcl [Wellbutrin Xl 150 Mg 24hr Tablet] 150 MG) PO SCH (10:00)
--- NOTE | 2018-11-14 10:13 | PDOC PROGRESS REPORT ---
Subjective Progress Note for:: 11/14/18 Subjective:: Patient is clinically stable. She eats well she tolerates well she moved her bowel and she noticed bright red blood in her stool. We will continue the antibiotics and follow her with general surgery. Reason For Visit: DIVERTICULAR ABSCESS, HYPERTENSION Physical Exam Vital Signs: Temp Pulse Resp BP Pulse Ox 97.8 F 76 16 127/88 H 99 11/14/18 07:41 11/14/18 07:41 11/14/18 07:41 11/14/18 07:41 11/14/18 07:41 Intake & Output 11/13/18 11/14/18 11/15/18 06:59 06:59 06:59 Intake Total 1368 1853 Output Total 200 Balance 1168 1853 Weight 98.3 kg 98.3 kg General appearance: PRESENT: no acute distress, well-developed, well-nourished Head exam: PRESENT: atraumatic, normocephalic Eye exam: PRESENT: conjunctiva pink, EOMI, PERRLA. ABSENT: scleral icterus Ear exam: PRESENT: normal external ear exam Mouth exam: PRESENT: moist, tongue midline Neck exam: ABSENT: carotid bruit, JVD, lymphadenopathy, thyromegaly Respiratory exam: PRESENT: clear to auscultation latoya. ABSENT: rales, rhonchi, wheezes Cardiovascular exam: PRESENT: RRR. ABSENT: diastolic murmur, rubs, systolic murmur Pulses: PRESENT: normal dorsalis pedis pul Vascular exam: PRESENT: normal capillary refill GI/Abdominal exam: PRESENT: tenderness Rectal exam: PRESENT: deferred Extremities exam: PRESENT: full ROM. ABSENT: calf tenderness, clubbing, pedal edema Neurological exam: PRESENT: alert, awake, oriented to person, oriented to place, oriented to time, oriented to situation, CN II-XII grossly intact. ABSENT: motor sensory deficit Psychiatric exam: PRESENT: appropriate affect, normal mood. ABSENT: homicidal ideation, suicidal ideation Skin exam: PRESENT: dry, intact, warm. ABSENT: cyanosis, rash Results Laboratory Results: 11/13/18 05:44 11/14/18 04:56 11/14/18 04:56 Sodium 135.7 L Potassium 3.3 L Chloride 97 L Carbon Dioxide 27 Anion Gap 12 BUN 4 L Creatinine 1.06 Est GFR ( Amer) > 60 Est GFR (Non-Af Amer) 55 L Glucose 135 H Calcium 9.7 Impressions: Abdomen/Pelvis CT 11/11/18 00:00 IMPRESSION: Diverticular abscess unamenable to CT-guided drainage. Surgical consultation is recommended. Chest X-Ray 11/11/18 17:26 IMPRESSION: Possible mild left basilar atelectasis. copyright 2010 [employer]- All Rights Reserved Assessment & Plan - Diagnosis (1) Colonic diverticular abscess Is this a current diagnosis for this admission?: Yes Plan: Continue current antibiotics. She will have repeat CT tomorrow. (2) Hypertension Qualifiers: Hypertension type: essential hypertension Qualified Code(s): I10 - Essential (primary) hypertension Is this a current diagnosis for this admission?: Yes Plan: Continue her home medication (3) COPD (chronic obstructive pulmonary disease) Qualifiers: Emphysema type: unspecified Is this a current diagnosis for this admission?: Yes Plan: We will put her on as needed bronchodilator. (4) Hyperlipidemia Qualifiers: Hyperlipidemia type: unspecified Qualified Code(s): E78.5 - Hyperlipidemia, unspecified Is this a current diagnosis for this admission?: Yes Plan: Continue her home statin
[2018-11-14] MEDS: HYDROCHLOROTHIAZIDE 25 MG TABLET PO SCH (11:26)
[2018-11-14] MEDS: POTASSIUM CHLORIDE 10 MEQ CAPSULE.ER PO SCH (11:27)
[2018-11-14] MEDS: ENOXAPARIN SODIUM INJ 30 MG/0.3 ML DISP.SYRIN SUBCUT SCH (11:27)
[2018-11-14] MEDS: BUPROPION HCL 75 MG TABLET PO SCH ×2 (11:27→18:23)
--- NOTE | 2018-11-14 16:25 | PDOC PROGRESS REPORT ---
Subjective Progress Note for:: 11/14/18 Subjective:: Had BM last night with blood. Still with discomfort with BM/flatus and voiding Reason For Visit: DIVERTICULAR ABSCESS, HYPERTENSION Physical Exam Vital Signs: Temp Pulse Resp BP Pulse Ox 98.2 F 81 18 149/82 H 100 11/14/18 15:00 11/14/18 15:00 11/14/18 15:00 11/14/18 15:00 11/14/18 15:00 Intake & Output 11/13/18 11/14/18 11/15/18 06:59 06:59 06:59 Intake Total 1368 1853 662 Output Total 200 Balance 1168 1853 662 Weight 98.3 kg 98.3 kg Exam: abdomen iremains soft with mild suprapubic tenderness Results Laboratory Results: 11/13/18 05:44 11/14/18 04:56 11/14/18 04:56 Sodium 135.7 L Potassium 3.3 L Chloride 97 L Carbon Dioxide 27 Anion Gap 12 BUN 4 L Creatinine 1.06 Est GFR ( Amer) > 60 Est GFR (Non-Af Amer) 55 L Glucose 135 H Calcium 9.7 Impressions: Abdomen/Pelvis CT 11/11/18 00:00 IMPRESSION: Diverticular abscess unamenable to CT-guided drainage. Surgical consultation is recommended. Chest X-Ray 11/11/18 17:26 IMPRESSION: Possible mild left basilar atelectasis. copyright 2010 [employer]- All Rights Reserved Assessment & Plan - Diagnosis (1) Hypertension Qualifiers: Hypertension type: essential hypertension Qualified Code(s): I10 - Essential (primary) hypertension Is this a current diagnosis for this admission?: Yes (2) Colonic diverticular abscess Is this a current diagnosis for this admission?: Yes - Time Time Spent with patient: 15-24 minutes - Inpatient Certification Medical Necessity: Need For IV Fluids, Need for IV Antibiotics, Risk of Complication if Not Cared For in Hospital - Plan Summary Plan Summary: Continue monitor CBC Clears Continue IV antibiotics
[2018-11-14] MEDS: ATORVASTATIN CALCIUM 20 MG TABLET PO SCH (22:03)
[2018-11-15] MEDS: METRONIDAZOLE 500 MG/NS RTU 500 MG/100 ML RTUPB IV SCH ×4 (06:53→23:06)
[2018-11-15] MEDS: PANTOPRAZOLE SODIUM 40 MG TABLET.DR PO SCH (07:25)
[2018-11-15] MEDS: HYDROMORPHONE HCL INJ/PF 2 MG/ML AMPULE IV PRN (07:25)
[2018-11-15] MEDS: CIPROFLOXACIN 400 MG/D5W RTU 400 MG/200 ML RTUPB IV SCH ×2 (08:55→17:06)
[2018-11-15] MEDS: POTASSIUM CHLORIDE 10 MEQ CAPSULE.ER PO SCH (09:02)
[2018-11-15] MEDS: BUPROPION HCL 75 MG TABLET PO SCH ×2 (09:02→17:06)
[2018-11-15] MEDS: ENOXAPARIN SODIUM INJ 30 MG/0.3 ML DISP.SYRIN SUBCUT SCH (09:04)
[2018-11-15] MEDS: KETOROLAC TROMETHAMINE INJ/PF 30 MG/1 ML SDV IV PRN ×2 (09:04→23:06)
[2018-11-15] MEDS: HYDROCHLOROTHIAZIDE 25 MG TABLET PO SCH (09:05)
[2018-11-15 09:33] LABS: ABSOLUTE BASOPHILS # (AUTO) 0.1 10^3/uL (0.0-0.2); ABSOLUTE EOSINOPHILS # (AUTO) 0.2 10^3/uL (0.0-0.6); ABSOLUTE LYMPHOCYTES (AUTO) 2.1 10^3/uL (0.5-4.7); ABSOLUTE MONOCYTES (AUTO) 0.5 10^3/uL (0.1-1.4); ABSOLUTE NEUT (AUTO) 3.8 10^3/uL (1.7-8.2); BASOPHILS % (AUTO) 1.2 % (0-2); EOSINOPHILS % (AUTO) 3.1 % (0-6); HEMATOCRIT 34.7 % (36.0-47.0); HEMOGLOBIN 11.9 g/dL (12.0-15.5); LYMPHOCYTES % (AUTO) 31.5 % (13-45); MEAN CORPUSCULAR HEMOGLOBIN 27.6 pg (27.0-33.4); MEAN CORPUSCULAR HGB CONC 34.3 g/dL (32.0-36.0); MEAN CORPUSCULAR VOLUME 80 fl (80-97); MONOCYTES % (AUTO) 7.7 % (3-13); PLATELET COUNT 326 10^3/uL (150-450); RED BLOOD COUNT 4.32 10^6/uL (3.72-5.28); RED CELL DISTRIBUTION WIDTH 15.5 % (11.5-14.0); SEGMENTED NEUTROPHILS % (AUTO) 56.5 % (42-78); TOTAL CELLS COUNTED % (AUTO) 100 %; WHITE BLOOD COUNT 6.7 10^3/uL (4.0-10.5)
[2018-11-15 09:40] LABS: ANION GAP 10 (5-19); BLOOD UREA NITROGEN 7 mg/dL (7-20); CALCIUM 9.9 mg/dL (8.4-10.2); CARBON DIOXIDE 29 mmol/L (22-30); CHLORIDE 99 mmol/L (98-107); GLUCOSE 128 mg/dL (75-110); POTASSIUM 3.2 mmol/L (3.6-5.0); SODIUM 137.7 mmol/L (137-145)
[2018-11-15] MEDS ORDERED: POTASSI CL 20 MEQ/50 ML RIDER 20 MEQ/50 ML RTUPB IV ONE (11:51)
--- NOTE | 2018-11-15 16:37 | RADIOLOGY REPORT (SQ) ---
EXAM DESCRIPTION: CT ABD/PELVIS WITH IV ORAL COMPLETED DATE/TIME: 11/15/2018 4:19 pm REASON FOR STUDY: follow up diverticular abscess COMPARISON: 11/11/2018 TECHNIQUE: CT scan of the abdomen and pelvis performed using helical scanning technique with dynamic intravenous contrast injection. No oral contrast. Images reviewed with lung, soft tissue, and bone windows. Reconstructed coronal and sagittal MPR images reviewed. Delayed images for evaluation of the urinary system also acquired. All images stored on PACS. All CT scanners at this facility use dose modulation, iterative reconstruction, and/or weight based d osing when appropriate to reduce radiation dose to as low as reasonably achievable (ALARA). [facility]: Dose Right [facility]: CareDose [facility]: Dose Right [facility]: Teradose 4D [facility]: CareCentrix CONTRAST TYPE AND DOSE: contrast/concentration: Isovue 350.00 mg/ml; Total Contrast Delivered: 100.0 ml; Total Saline Delivered: 72.0 ml RENAL FUNCTION: BUN 7, creatinine 1.08 RADIATION DOSE: CT Rad equipment meets quality standard of care and radiation dose reduction techniq ues were employed. CTDIvol: 12.5 - 14.4 mGy. DLP: 1301 mGy-cm.. LIMITATIONS: None. FINDINGS: LOWER CHEST: No significant findings. No nodules or infiltrates. LIVER: Normal size. No masses. No dilated ducts. SPLEEN: Normal size. No focal lesions. PANCREAS: No masses. No significant calcifications. No adjacent inflammation or peripancreatic fluid collections. Pancreatic duct not dilated. GALLBLADDER: No identified stones by CT criteria. No inflammatory changes to suggest cholecystitis. ADRENAL GLANDS: No significant masses or asymmetry. RIGHT KIDNEY AND URETER: No solid masses. No significant calcifications. No hydronephrosis or hyd roureter. LEFT KIDNEY AND URETER: No solid masses. No significant calcifications. No hydronephrosis or hydr oureter. AORTA AND VESSELS: No aneurysm. No dissection. Renal arteries, SMA, celiac without stenosis. RETROPERITONEUM: No retroperitoneal adenopathy, hemorrhage or masses. BOWEL AND PERITONEAL CAVITY: Inflammatory changes surrounding the proximal sigmoid colon have improve d. There is persistent bowel wall thickening there are tiny pockets of contain gas but the large abs cess previously described has resolved. APPENDIX: Normal. PELVIS: No mass. No free fluid. Normal bladder. ABDOMINAL WALL: No masses. No hernias. BONES: No significant or acute findings. OTHER: No other significant finding. IMPRESSION: Diverticular abscess has largely resolved. There are small pockets of contained air carmen rounding the proximal sigmoid colon with persistent inflammation. The sizable abscess previously tarik cribed measured 2.4 x 4.1 cm has largely resolved. TECHNICAL DOCUMENTATION: JOB ID: [id number] Quality ID # [id number]: Final reports with documentation of one or more dose reduction techniques (e.g., Au tomated exposure control, adjustment of the mA and/or kV according to patient size, use of iterative reconstruction technique) 2010 [employer]- All Rights Reserved Reading location - IP/workstation name: [email or web address]
--- NOTE | 2018-11-15 16:56 | PDOC PROGRESS REPORT ---
Subjective Progress Note for:: 11/15/18 Subjective:: suprapubic discomfort with painful Voiding and passage of flatus Reason For Visit: DIVERTICULAR ABSCESS, HYPERTENSION Physical Exam Vital Signs: Temp Pulse Resp BP Pulse Ox 98.5 F 70 16 155/80 H 100 11/15/18 11:51 11/15/18 11:51 11/15/18 11:51 11/15/18 11:51 11/15/18 11:51 Intake & Output 11/14/18 11/15/18 11/16/18 06:59 06:59 06:59 Intake Total 1853 1417 300 Balance 1853 1417 300 Weight 98.3 kg 98.3 kg 98.3 kg Exam: abdomen is soft. Mild tenderness suprapubic area Results Laboratory Results: 11/15/18 09:20 11/15/18 09:20 11/15/18 11/15/18 09:20 09:20 WBC 6.7 RBC 4.32 Hgb 11.9 L Hct 34.7 L MCV 80 MCH 27.6 MCHC 34.3 RDW 15.5 H Plt Count 326 Seg Neutrophils % 56.5 Lymphocytes % 31.5 Monocytes % 7.7 Eosinophils % 3.1 Basophils % 1.2 Absolute Neutrophils 3.8 Absolute Lymphocytes 2.1 Absolute Monocytes 0.5 Absolute Eosinophils 0.2 Absolute Basophils 0.1 Sodium 137.7 Potassium 3.2 L Chloride 99 Carbon Dioxide 29 Anion Gap 10 BUN 7 Creatinine 1.08 Est GFR ( Amer) > 60 Est GFR (Non-Af Amer) 53 L Glucose 128 H Calcium 9.9 Impressions: Chest X-Ray 11/11/18 17:26 IMPRESSION: Possible mild left basilar atelectasis. copyright 2011 [employer]- All Rights Reserved Abdomen/Pelvis CT 11/15/18 00:00 IMPRESSION: Diverticular abscess has largely resolved. There are small pockets of contained air surrounding the proximal sigmoid colon with persistent inflammation. The sizable abscess previously described measured 2.4 x 4.1 cm has largely resolved. Assessment & Plan - Diagnosis (1) Hypertension Qualifiers: Hypertension type: essential hypertension Qualified Code(s): I10 - Essential (primary) hypertension Is this a current diagnosis for this admission?: Yes (2) Colonic diverticular abscess Is this a current diagnosis for this admission?: Yes - Time Time Spent with patient: 15-24 minutes - Inpatient Certification Medical Necessity: Need For IV Fluids, Need for Pain Control, Need for IV Antibiotics, Risk of Complication if Not Cared For in Hospital - Plan Summary Plan Summary: Follow up CT scan showed the diverticular abscess practically resolved but still with evidence of infection . Will gradually increase po intake Continue IV antibiotics( on Day 4 today) to complete at least 7 days then po antibiotics for another week
--- NOTE | 2018-11-15 17:46 | PDOC PROGRESS REPORT ---
Subjective Progress Note for:: 11/15/18 Subjective:: She is still complaining of abdominal pain overall states she does feel little bit better. Been afebrile overnight she has been trying to eat her breakfast. Have one episode of vomiting this afternoon after drinking the contrast for her CT scan. Otherwise she denies any shortness of breath any cough numbness and tingling in the extremities. Reason For Visit: DIVERTICULAR ABSCESS, HYPERTENSION Physical Exam Vital Signs: Temp Pulse Resp BP Pulse Ox 98.5 F 70 16 155/80 H 100 11/15/18 11:51 11/15/18 11:51 11/15/18 11:51 11/15/18 11:51 11/15/18 11:51 Intake & Output 11/14/18 11/15/18 11/16/18 06:59 06:59 06:59 Intake Total 1853 1417 450 Balance 1853 1417 450 Weight 98.3 kg 98.3 kg 98.3 kg General appearance: PRESENT: no acute distress, cooperative Mouth exam: PRESENT: moist, neck supple Neck exam: PRESENT: full ROM. ABSENT: JVD, lymphadenopathy, tenderness, thyromegaly, tracheal deviation Respiratory exam: PRESENT: clear to auscultation latoya. ABSENT: accessory muscle use Cardiovascular exam: PRESENT: RRR. ABSENT: gallop, rubs GI/Abdominal exam: PRESENT: normal bowel sounds, soft, tenderness. ABSENT: ascites Musculoskeletal exam: PRESENT: full ROM. ABSENT: tenderness Neurological exam: PRESENT: alert, oriented to person, oriented to place, oriented to time, oriented to situation Psychiatric exam: ABSENT: agitated, anxious Skin exam: PRESENT: dry, normal color, warm Results Laboratory Results: 11/15/18 09:20 11/15/18 09:20 11/15/18 11/15/18 09:20 09:20 WBC 6.7 RBC 4.32 Hgb 11.9 L Hct 34.7 L MCV 80 MCH 27.6 MCHC 34.3 RDW 15.5 H Plt Count 326 Seg Neutrophils % 56.5 Lymphocytes % 31.5 Monocytes % 7.7 Eosinophils % 3.1 Basophils % 1.2 Absolute Neutrophils 3.8 Absolute Lymphocytes 2.1 Absolute Monocytes 0.5 Absolute Eosinophils 0.2 Absolute Basophils 0.1 Sodium 137.7 Potassium 3.2 L Chloride 99 Carbon Dioxide 29 Anion Gap 10 BUN 7 Creatinine 1.08 Est GFR ( Amer) > 60 Est GFR (Non-Af Amer) 53 L Glucose 128 H Calcium 9.9 Impressions: Chest X-Ray 11/11/18 17:26 IMPRESSION: Possible mild left basilar atelectasis. copyright 2011 [employer]- All Rights Reserved Abdomen/Pelvis CT 11/15/18 00:00 IMPRESSION: Diverticular abscess has largely resolved. There are small pockets of contained air surrounding the proximal sigmoid colon with persistent inflammation. The sizable abscess previously described measured 2.4 x 4.1 cm has largely resolved. Assessment and Plan - Diagnosis (1) Colonic diverticular abscess Is this a current diagnosis for this admission?: Yes Plan: 11/15/18 17:46 CT done this afternoon shows that the abscess is reducing in size. Continue to be followed by surgical services (2) COPD (chronic obstructive pulmonary disease) Qualifiers: Emphysema type: unspecified Is this a current diagnosis for this admission?: Yes Plan: 11/15/18 17:46 No signs of acute exacerbation we will continue to follow. (3) Hyperlipidemia Qualifiers: Hyperlipidemia type: unspecified Qualified Code(s): E78.5 - Hyperlipidemia, unspecified Is this a current diagnosis for this admission?: Yes Plan: 11/15/18 17:46 Continue home statin. (4) Hypertension Qualifiers: Hypertension type: essential hypertension Qualified Code(s): I10 - Essential (primary) hypertension Is this a current diagnosis for this admission?: Yes Plan: 11/15/18 17:46 Is been well controlled we will continue to monitor continue home medications. - Time Time Spent with patient: 25-34 minutes Medications reviewed and adjusted accordingly: Yes Anticipated discharge: Home
[2018-11-15] MEDS: ATORVASTATIN CALCIUM 20 MG TABLET PO SCH (21:49)
--- NOTE | 2018-11-16 01:45 | PDOC PROGRESS REPORT ---
Subjective Progress Note for:: 11/16/18 Subjective:: less abdominal pains Tolerating clears Reason For Visit: DIVERTICULAR ABSCESS, HYPERTENSION Physical Exam Vital Signs: Temp Pulse Resp BP Pulse Ox 98.8 F 74 18 178/86 H 99 11/15/18 20:48 11/15/18 20:48 11/15/18 20:48 11/15/18 20:48 11/15/18 20:48 Intake & Output 11/14/18 11/15/18 11/16/18 06:59 06:59 06:59 Intake Total 1853 1417 750 Balance 1853 1417 750 Weight 98.3 kg 98.3 kg 98.3 kg Exam: Abdomen is soft with minimal suprapubic tenderness Results Laboratory Results: 11/15/18 09:20 11/15/18 09:20 11/15/18 11/15/18 09:20 09:20 WBC 6.7 RBC 4.32 Hgb 11.9 L Hct 34.7 L MCV 80 MCH 27.6 MCHC 34.3 RDW 15.5 H Plt Count 326 Seg Neutrophils % 56.5 Lymphocytes % 31.5 Monocytes % 7.7 Eosinophils % 3.1 Basophils % 1.2 Absolute Neutrophils 3.8 Absolute Lymphocytes 2.1 Absolute Monocytes 0.5 Absolute Eosinophils 0.2 Absolute Basophils 0.1 Sodium 137.7 Potassium 3.2 L Chloride 99 Carbon Dioxide 29 Anion Gap 10 BUN 7 Creatinine 1.08 Est GFR ( Amer) > 60 Est GFR (Non-Af Amer) 53 L Glucose 128 H Calcium 9.9 Impressions: Chest X-Ray 11/11/18 17:26 IMPRESSION: Possible mild left basilar atelectasis. copyright 2011 [employer]- All Rights Reserved Abdomen/Pelvis CT 11/15/18 00:00 IMPRESSION: Diverticular abscess has largely resolved. There are small pockets of contained air surrounding the proximal sigmoid colon with persistent inflammation. The sizable abscess previously described measured 2.4 x 4.1 cm has largely resolved. Assessment & Plan - Diagnosis (1) Hypertension Qualifiers: Hypertension type: essential hypertension Qualified Code(s): I10 - Essential (primary) hypertension Is this a current diagnosis for this admission?: Yes (2) Colonic diverticular abscess Is this a current diagnosis for this admission?: Yes - Time Time Spent with patient: 15-24 minutes - Inpatient Certification Medical Necessity: Need for IV Antibiotics - Plan Summary Plan Summary: Had repeat CT scan of abdomen which showed resolution of diverticular abscess but still with inflammation. Will continue IV antibiotics and increase diet Plan discharge in 48 hrs
[2018-11-16] MEDS: METRONIDAZOLE 500 MG/NS RTU 500 MG/100 ML RTUPB IV SCH ×3 (06:01→21:30)
[2018-11-16] MEDS: PANTOPRAZOLE SODIUM 40 MG TABLET.DR PO SCH (08:08)
[2018-11-16] MEDS: CIPROFLOXACIN 400 MG/D5W RTU 400 MG/200 ML RTUPB IV SCH ×2 (08:08→17:26)
[2018-11-16] MEDS: ENOXAPARIN SODIUM INJ 30 MG/0.3 ML DISP.SYRIN SUBCUT SCH (09:59)
[2018-11-16] MEDS: HYDROCHLOROTHIAZIDE 25 MG TABLET PO SCH (09:59)
[2018-11-16] MEDS: POTASSIUM CHLORIDE 10 MEQ CAPSULE.ER PO SCH (09:59)
[2018-11-16] MEDS: BUPROPION HCL 75 MG TABLET PO SCH ×2 (09:59→17:26)
--- NOTE | 2018-11-16 10:34 | PDOC PROGRESS REPORT ---
<LOREN MCCLAIN G - Last Filed: 11/16/18 10:23> Subjective Subjective:: Abdominal pain has resolved. Is tender while having a BM. Nausea while receiving IV antibiotics. Able to eat small amounts of food but is nervous to hurt her stomach. Was able to eat several bits of pasta last night and drink juice along with a bite of eggs this morning. Decreased appetite. Denies fever, chills, night sweats, vomiting, abdominal distention, abdominal pain. Reason For Visit: DIVERTICULAR ABSCESS, HYPERTENSION Physical Exam Vital Signs: Temp Pulse Resp BP Pulse Ox 98.6 F 85 16 121/73 99 11/15/18 23:29 11/15/18 23:29 11/15/18 23:29 11/15/18 23:29 11/15/18 23:29 Intake & Output 11/15/18 11/16/18 11/17/18 06:59 06:59 06:59 Intake Total 1417 1116 100 Balance 1417 1116 100 Weight 98.3 kg 98.3 kg General appearance: PRESENT: no acute distress, well-developed Head exam: PRESENT: atraumatic, normocephalic Eye exam: PRESENT: EOMI Respiratory exam: PRESENT: unlabored. ABSENT: accessory muscle use, chest wall tenderness, retraction, tachypnea Cardiovascular exam: PRESENT: RRR. ABSENT: irregular rhythm GI/Abdominal exam: PRESENT: soft. ABSENT: ascites, distended, firm, guarding Neurological exam: PRESENT: alert, awake, oriented to person, oriented to place, oriented to situation Psychiatric exam: PRESENT: appropriate affect, normal mood. ABSENT: agitated, anxious Results Laboratory Results: 11/15/18 09:20 11/15/18 09:20 Impressions: Chest X-Ray 11/11/18 17:26 IMPRESSION: Possible mild left basilar atelectasis. copyright 2010 [employer]- All Rights Reserved Abdomen/Pelvis CT 11/15/18 00:00 IMPRESSION: Diverticular abscess has largely resolved. There are small pockets of contained air surrounding the proximal sigmoid colon with persistent inflammation. The sizable abscess previously described measured 2.4 x 4.1 cm has largely resolved. Assessment & Plan - Diagnosis (1) Colonic diverticular abscess Is this a current diagnosis for this admission?: Yes - Plan Summary Plan Summary: Snow Falcon is a 53 y/o female with resolving diverticular abscess. Abdominal pain has improved. Passing flatus and having BM. Encourage to continue eating small portions. Continue IV antibiotics <LINDA KHOURY - Last Filed: 11/16/18 18:13> Subjective Subjective:: Denies headache, chest pain, shortness of breath, dizziness, orthostasis, malaise, or fatigue. Reason For Visit: DIVERTICULAR ABSCESS, HYPERTENSION Physical Exam Vital Signs: Temp Pulse Resp BP Pulse Ox 100.1 F 94 20 129/85 H 96 11/16/18 15:10 11/16/18 15:10 11/16/18 15:10 11/16/18 15:10 11/16/18 15:10 Intake & Output 11/15/18 11/16/18 11/17/18 06:59 06:59 06:59 Intake Total 1417 1116 518 Balance 1417 1116 518 Weight 98.3 kg 98.3 kg Mouth exam: PRESENT: moist, neck supple Neck exam: ABSENT: meningismus, tenderness, thyromegaly, tracheal deviation Pulses: PRESENT: normal radial pulses Musculoskeletal exam: ABSENT: deformity Skin exam: ABSENT: cyanosis, erythema, jaundice Results Laboratory Results: 11/15/18 09:20 11/15/18 09:20 Impressions: Chest X-Ray 11/11/18 17:26 IMPRESSION: Possible mild left basilar atelectasis. copyright 2011 [employer]- All Rights Reserved Abdomen/Pelvis CT 11/15/18 00:00 IMPRESSION: Diverticular abscess has largely resolved. There are small pockets of contained air surrounding the proximal sigmoid colon with persistent inflammation. The sizable abscess previously described measured 2.4 x 4.1 cm has largely resolved. Assessment & Plan - Diagnosis (1) Sigmoid diverticulitis Is this a current diagnosis for this admission?: Yes - Plan Summary Plan Summary: I have personally interviewed and examined this patient. I agree with the above documentation by Loren Mcclain PA-C. The patient's abdomen is minimally tender. She is improving with antibiotics. She is tolerating small amounts of food. I have encouraged her to increase her diet. Continue with pain medications and antibiotics.
--- NOTE | 2018-11-16 11:18 | PDOC PROGRESS REPORT ---
Subjective Progress Note for:: 11/16/18 Subjective:: She is still complaining of abdominal pain overall states she does feel little bit better. Been afebrile overnight she has been trying to eat her breakfast. Have one episode of vomiting this afternoon after drinking the contrast for her CT scan. Otherwise she denies any shortness of breath any cough numbness and tingling in the extremities. Ct shows resolution of diverticular abscess Reason For Visit: DIVERTICULAR ABSCESS, HYPERTENSION Physical Exam Vital Signs: Temp Pulse Resp BP Pulse Ox 98.6 F 85 16 121/73 99 11/15/18 23:29 11/15/18 23:29 11/15/18 23:29 11/15/18 23:29 11/15/18 23:29 Intake & Output 11/15/18 11/16/18 11/17/18 06:59 06:59 06:59 Intake Total 1417 1116 100 Balance 1417 1116 100 Weight 98.3 kg 98.3 kg General appearance: PRESENT: no acute distress, cooperative Eye exam: ABSENT: scleral icterus Mouth exam: PRESENT: neck supple Neck exam: ABSENT: JVD, tenderness, thyromegaly, tracheal deviation Respiratory exam: PRESENT: clear to auscultation latoya, unlabored GI/Abdominal exam: PRESENT: normal bowel sounds, soft. ABSENT: tenderness Extremities exam: ABSENT: pedal edema Neurological exam: PRESENT: alert, oriented to person, oriented to place, oriented to time, oriented to situation Skin exam: PRESENT: dry, normal color, warm Results Laboratory Results: 11/15/18 09:20 11/15/18 09:20 Impressions: Chest X-Ray 11/11/18 17:26 IMPRESSION: Possible mild left basilar atelectasis. copyright 2011 [employer]- All Rights Reserved Abdomen/Pelvis CT 11/15/18 00:00 IMPRESSION: Diverticular abscess has largely resolved. There are small pockets of contained air surrounding the proximal sigmoid colon with persistent inflammation. The sizable abscess previously described measured 2.4 x 4.1 cm has largely resolved. Assessment and Plan - Diagnosis (1) Colonic diverticular abscess Is this a current diagnosis for this admission?: Yes Plan: 11/15/18 17:46 CT done this afternoon shows that the abscess is reducing in size. Continue to be followed by surgical services (2) COPD (chronic obstructive pulmonary disease) Qualifiers: Emphysema type: unspecified Is this a current diagnosis for this admission?: Yes Plan: 11/15/18 17:46 No signs of acute exacerbation. (3) Hyperlipidemia Qualifiers: Hyperlipidemia type: unspecified Qualified Code(s): E78.5 - Hyperlipidemia, unspecified Is this a current diagnosis for this admission?: Yes Plan: 11/15/18 17:46 Continue home statin. (4) Hypertension Qualifiers: Hypertension type: essential hypertension Qualified Code(s): I10 - Essential (primary) hypertension Is this a current diagnosis for this admission?: Yes Plan: 11/15/18 17:46 Is been well controlled on home medications. Medical services will sign off unless specifically required by surgical services. - Time Time Spent with patient: 25-34 minutes Medications reviewed and adjusted accordingly: Yes Anticipated discharge: Home Within: within 48 hours
[2018-11-16] MEDS: ONDANSETRON 4 MG TAB.RAPDIS PO PRN (13:48)
[2018-11-16] MEDS: ATORVASTATIN CALCIUM 20 MG TABLET PO SCH (21:29)
[2018-11-17] MEDS: HYDROMORPHONE HCL INJ/PF 2 MG/ML AMPULE IV PRN (00:49)
[2018-11-17] MEDS: ONDANSETRON 4 MG TAB.RAPDIS PO PRN (00:49)
[2018-11-17] MEDS: METRONIDAZOLE 500 MG/NS RTU 500 MG/100 ML RTUPB IV SCH ×3 (00:51→13:47)
[2018-11-17] MEDS: ONDANSETRON HCL INJ/PF 4 MG/2 ML SDV IV PRN (04:10)
[2018-11-17] MEDS: PANTOPRAZOLE SODIUM 40 MG TABLET.DR PO SCH (06:14)
[2018-11-17] MEDS: CIPROFLOXACIN 400 MG/D5W RTU 400 MG/200 ML RTUPB IV SCH (08:14)
[2018-11-17] MEDS ORDERED: POTASSI CL 20 MEQ/50 ML RIDER 20 MEQ/50 ML RTUPB IV ONE (09:30)
[2018-11-17] MEDS: BUPROPION HCL 75 MG TABLET PO SCH (10:10)
[2018-11-17] MEDS: HYDROCHLOROTHIAZIDE 25 MG TABLET PO SCH (10:10)
[2018-11-17] MEDS: POTASSIUM CHLORIDE 10 MEQ CAPSULE.ER PO SCH (10:10)
[2018-11-17] MEDS: ENOXAPARIN SODIUM INJ 30 MG/0.3 ML DISP.SYRIN SUBCUT SCH (11:12)
[2018-11-17 11:13] VITALS: BP 177/74
--- NOTE | 2018-11-17 23:43 | DISCHARGE SUMMARY E ---
Discharge Summary NAME: MARCUS TOBIN : 1965 AGE: 53Y ADMITTED: 11/11/2018 DISCHARGED: 11/17/2018 FINAL DIAGNOSIS: Diverticular abscess. HOSPITAL COURSE: This is a 53-year-old female complaining of abdominal pains, worse with bowel movement and voiding. She came to the ED and had a CT scan of the abdomen, which showed a diverticular abscess with slightly elevated white count. She was then admitted for IV antibiotic therapy. Films showed that it is not amenable to radiologist placement of a catheter. She gradually improved and on 11/14/18, had a repeat CT scan of the abdomen which showed diverticular abscess appears to have resolved. In the meantime she is able to tolerate a soft diet and her white count remained normal. She had a bowel movement with less discomfort. She remained afebrile. She was then discharged improved on 11/17/18. DISCHARGE INSTRUCTIONS: Given a prescription for Cipro 500 mg p.o. q.12 hours and Flagyl 500 mg p.o. q.8 hours for the next 9 days. The patient to be followed up in the surgical clinic in 2 weeks. The patient advised to continue the soft diet and if she develops any fever, chills, or severe abdominal pain to come back to the emergency room. She also was given a prescription for antinausea medication. DICTATING PHYSICIAN: JEMAL GLEZ M.D. [id number] PHY#: [id number] ID: [id number] JOB#: [id number] ACCT: [id number] cc:JEMAL GLEZ M.D. >
== END 2018-11-17 12:42 | disposition home or self-care (01) | DRG 392 ==
LOC: ER 08:54 → EH 15:56 → 4N 21:34
PROVIDERS: ATTEND Surgery
DX: K57.80 Diverticulitis of intestine, part unspecified, with perforation and abscess without bleeding (principal); I10 Essential (primary) hypertension; J44.9 Chronic obstructive pulmonary disease, unspecified; E87.6 Hypokalemia; E78.5 Hyperlipidemia, unspecified; F17.200 Nicotine dependence, unspecified, uncomplicated; Z98.1 Arthrodesis status; Z88.2 Allergy status to sulfonamides; Z91.040 Latex allergy status
CPT/HCPCS: 36415; 71046; 74177; 80048; 80053; 81001; 83690; 85025; 87040; 94660; 96361; 96374; 96375; 99285; J0744; J1170; J1650; J1885; J2060; J2270; J2405; J3480; J3490; J7030; S0119

== ENCOUNTER → 2019-04-14 | Outpatient (CLI) | payer OTHER ==
[2019-04-14 11:57] LABS: ABSOLUTE BASOPHILS # (AUTO) 0.1 10^3/uL (0.0-0.2); ABSOLUTE EOSINOPHILS # (AUTO) 0.2 10^3/uL (0.0-0.6); ABSOLUTE LYMPHOCYTES (AUTO) 3.3 10^3/uL (0.5-4.7); ABSOLUTE MONOCYTES (AUTO) 0.4 10^3/uL (0.1-1.4); ABSOLUTE NEUT (AUTO) 2.3 10^3/uL (1.7-8.2); BASOPHILS % (AUTO) 0.9 % (0-2); EOSINOPHILS % (AUTO) 2.7 % (0-6); HEMATOCRIT 40.3 % (36.0-47.0); HEMOGLOBIN 13.2 g/dL (12.0-15.5); LYMPHOCYTES % (AUTO) 53.2 % (13-45); MEAN CORPUSCULAR HEMOGLOBIN 26.6 pg (27.0-33.4); MEAN CORPUSCULAR HGB CONC 32.8 g/dL (32.0-36.0); MEAN CORPUSCULAR VOLUME 81 fl (80-97); PLATELET COUNT 275 10^3/uL (150-450); RED BLOOD COUNT 4.97 10^6/uL (3.72-5.28); RED CELL DISTRIBUTION WIDTH 15.9 % (11.5-14.0); SEGMENTED NEUTROPHILS % (AUTO) 37.2 % (42-78); TOTAL CELLS COUNTED % (AUTO) 100 %; WHITE BLOOD COUNT 6.2 10^3/uL (4.0-10.5)
[2019-04-14 12:15] LABS: ALBUMIN 4.4 g/dL (3.5-5.0); ALKALINE PHOSPHATASE 96 U/L (38-126); ANION GAP 11 (5-19); ASPARTATE AMINO TRANSFERASE 21 U/L (14-36); BILIRUBIN,DIRECT 0.2 mg/dL (0.0-0.4); BILIRUBIN,TOTAL 0.3 mg/dL (0.2-1.3); BLOOD UREA NITROGEN 11 mg/dL (7-20); CALCIUM 9.8 mg/dL (8.4-10.2); CARBON DIOXIDE 28 mmol/L (22-30); CHLORIDE 101 mmol/L (98-107); CHOLESTEROL 155.62 mg/dL (0-200); GLUCOSE 105 mg/dL (75-110); POTASSIUM 4.1 mmol/L (3.6-5.0); TOTAL PROTEIN 7.5 g/dL (6.3-8.2); TRIGLYCERIDES 133 mg/dL (<150)
[2019-04-14 12:25] LABS: DIRECT LDL 83 mg/dL (<100)
== END ==
LOC: OD 10:35
PROVIDERS: ATTEND Family Medicine Geriatric Medicine
DX: E78.5 Hyperlipidemia, unspecified (principal); M54.2 Cervicalgia; I10 Essential (primary) hypertension; R25.2 Cramp and spasm; Z79.899 Other long term (current) drug therapy
CPT/HCPCS: 36415; 80053; 80061; 83735; 85025

== ENCOUNTER → 2019-06-19 | Outpatient (CLI) | payer OTHER ==
--- NOTE | 2019-06-19 13:57 | WOMENS IMAGING REPORT ---
EXAM DESCRIPTION: BILAT SCREENING MAMMO W/CAD COMPLETED DATE/TIME: 06/19/2019 7:27 am REASON FOR STUDY: Z12.31 ENCOUNTER FOR SCREENING MAMMOGRAM FOR MALIGNANT NEOPLASM OF BREAST Z12.31 ENCNTR SCREEN MAMMOGRAM FOR MALIGNANT NEOPLASM OF EMRE COMPARISON: 06/08/2018. EXAM PARAMETERS: Standard craniocaudal and mediolateral oblique views of each breast recorded using digital acquisition. Read with the assistance of CAD. .[facility] - [employer] Version 9.2 LIMITATIONS: None. FINDINGS: No suspicious masses, suspicious calcifications or architectural distortion. No areas of c oncern. IMPRESSION: Negative MAMMOGRAM. BIRADS 1 BREAST DENSITY: b. There are scattered areas of fibroglandular density. BIRAD: ASSESSMENT: 1 NEGATIVE RECOMMENDATION: ROUTINE SCREENING COMMENT: The patient has been notified of the results by letter per MQSA requirements. Additional no tification policies are in place for contacting patient with suspicious or incomplete findings. Quality ID #[id number]: The [employer] recommends an annual screening mammogram for women aged 40 years or over. This facility utilizes a reminder system to ensure that all patients receive reminder letters, and/or direct phone calls for appointments. This includes reminders for routine scr eening mammograms, diagnostic mammograms, or other Breast Imaging Interventions when appropriate. Th is patient will be placed in the appropriate reminder system. TECHNICAL DOCUMENTATION: FINDING NUMBER: (1) ASSESSMENT: (1) JOB ID: [id number] [employer]- All Rights Reserved Reading location - IP/workstation name: [email or web address]
== END ==
LOC: WI 07:05
PROVIDERS: ATTEND Family Medicine Geriatric Medicine
DX: Z12.31 Encounter for screening mammogram for malignant neoplasm of breast (principal)
CPT/HCPCS: 77067

== ENCOUNTER → 2019-07-25 | Outpatient (CLI) | payer OTHER ==
[2019-07-25 08:25] LABS: ABSOLUTE BASOPHILS # (AUTO) 0.1 10^3/uL (0.0-0.2); ABSOLUTE EOSINOPHILS # (AUTO) 0.1 10^3/uL (0.0-0.6); ABSOLUTE LYMPHOCYTES (AUTO) 3.2 10^3/uL (0.5-4.7); ABSOLUTE MONOCYTES (AUTO) 0.4 10^3/uL (0.1-1.4); ABSOLUTE NEUT (AUTO) 2.6 10^3/uL (1.7-8.2); EOSINOPHILS % (AUTO) 2.1 % (0-6); HEMOGLOBIN 13.1 g/dL (12.0-15.5); LYMPHOCYTES % (AUTO) 50.1 % (13-45); MEAN CORPUSCULAR HGB CONC 33.5 g/dL (32.0-36.0); MEAN CORPUSCULAR VOLUME 81 fl (80-97); MONOCYTES % (AUTO) 5.8 % (3-13); PLATELET COUNT 285 10^3/uL (150-450); RED BLOOD COUNT 4.83 10^6/uL (3.72-5.28); RED CELL DISTRIBUTION WIDTH 15.4 % (11.5-14.0); TOTAL CELLS COUNTED % (AUTO) 100 %; WHITE BLOOD COUNT 6.3 10^3/uL (4.0-10.5)
== END ==
LOC: OD 07:36
PROVIDERS: ATTEND Family Medicine Geriatric Medicine
DX: R79.89 Other specified abnormal findings of blood chemistry (principal)
CPT/HCPCS: 36415; 85025

== ENCOUNTER → 2019-09-12 | Outpatient (CLI) | payer OTHER ==
[2019-09-12 09:50] LABS: ABSOLUTE BASOPHILS # (AUTO) 0.1 10^3/uL (0.0-0.2); ABSOLUTE EOSINOPHILS # (AUTO) 0.1 10^3/uL (0.0-0.6); ABSOLUTE LYMPHOCYTES (AUTO) 3.1 10^3/uL (0.5-4.7); ABSOLUTE MONOCYTES (AUTO) 0.4 10^3/uL (0.1-1.4); ABSOLUTE NEUT (AUTO) 1.9 10^3/uL (1.7-8.2); BASOPHILS % (AUTO) 1.1 % (0-2); EOSINOPHILS % (AUTO) 1.9 % (0-6); HEMATOCRIT 37.1 % (36.0-47.0); HEMOGLOBIN 12.7 g/dL (12.0-15.5); MEAN CORPUSCULAR HEMOGLOBIN 27.3 pg (27.0-33.4); MEAN CORPUSCULAR HGB CONC 34.2 g/dL (32.0-36.0); MEAN CORPUSCULAR VOLUME 80 fl (80-97); MONOCYTES % (AUTO) 6.3 % (3-13); PLATELET COUNT 291 10^3/uL (150-450); RED BLOOD COUNT 4.65 10^6/uL (3.72-5.28); SEGMENTED NEUTROPHILS % (AUTO) 34.7 % (42-78); TOTAL CELLS COUNTED % (AUTO) 100 %; WHITE BLOOD COUNT 5.6 10^3/uL (4.0-10.5)
[2019-09-12 09:55] LABS: ANION GAP 10 (5-19); BLOOD UREA NITROGEN 10 mg/dL (7-20); CALCIUM 9.8 mg/dL (8.4-10.2); CARBON DIOXIDE 32 mmol/L (22-30); CHLORIDE 98 mmol/L (98-107); GLUCOSE 114 mg/dL (75-110); TRIGLYCERIDES 178 mg/dL (<150)
[2019-09-12 10:06] LABS: DIRECT LDL 81 mg/dL (<100)
[2019-09-12 10:07] LABS: VLDL CHOLESTEROL 35.6 mg/dL (10-31)
== END ==
LOC: OD 08:47
PROVIDERS: ATTEND Family Medicine Geriatric Medicine
DX: E78.5 Hyperlipidemia, unspecified (principal); I10 Essential (primary) hypertension; R25.2 Cramp and spasm; Z79.899 Other long term (current) drug therapy
CPT/HCPCS: 36415; 80048; 80061; 84460; 85025

== ENCOUNTER → 2019-09-14 | Outpatient (CLI) | payer OTHER | LOC: OD 11:35 | PROVIDERS: ATTEND Family Medicine Geriatric Medicine | DX: R73.9 Hyperglycemia, unspecified (principal) | CPT/HCPCS: 36415; 82947; 82950; 83036 ==

== ENCOUNTER 2019-09-28 23:21 | Emergency (ER) | payer OTHER ==
[2019-09-29 02:21] LABS: ABSOLUTE BASOPHILS # (AUTO) 0.1 10^3/uL (0.0-0.2); ABSOLUTE EOSINOPHILS # (AUTO) 0.1 10^3/uL (0.0-0.6); ABSOLUTE LYMPHOCYTES (AUTO) 3.5 10^3/uL (0.5-4.7); ABSOLUTE MONOCYTES (AUTO) 0.5 10^3/uL (0.1-1.4); ABSOLUTE NEUT (AUTO) 4.2 10^3/uL (1.7-8.2); BASOPHILS % (AUTO) 1.3 % (0-2); EOSINOPHILS % (AUTO) 1.7 % (0-6); HEMATOCRIT 38.7 % (36.0-47.0); LYMPHOCYTES % (AUTO) 41.1 % (13-45); MEAN CORPUSCULAR HGB CONC 33.6 g/dL (32.0-36.0); MEAN CORPUSCULAR VOLUME 80 fl (80-97); PLATELET COUNT 320 10^3/uL (150-450); RED BLOOD COUNT 4.82 10^6/uL (3.72-5.28); RED CELL DISTRIBUTION WIDTH 15.8 % (11.5-14.0); SEGMENTED NEUTROPHILS % (AUTO) 49.9 % (42-78); TOTAL CELLS COUNTED % (AUTO) 100 %; WHITE BLOOD COUNT 8.5 10^3/uL (4.0-10.5)
[2019-09-29 02:53] LABS: ALBUMIN 4.8 g/dL (3.5-5.0); ALKALINE PHOSPHATASE 92 U/L (38-126); ANION GAP 10 (5-19); ASPARTATE AMINO TRANSFERASE 28 U/L (14-36); BILIRUBIN,TOTAL 0.6 mg/dL (0.2-1.3); BLOOD UREA NITROGEN 12 mg/dL (7-20); CALCIUM 10.1 mg/dL (8.4-10.2); CARBON DIOXIDE 31 mmol/L (22-30); CHLORIDE 103 mmol/L (98-107); CREATINE KINASE 176 U/L (30-135); GLUCOSE 99 mg/dL (75-110); POTASSIUM 3.6 mmol/L (3.6-5.0); TOTAL PROTEIN 8.1 g/dL (6.3-8.2)
[2019-09-29 03:05] LABS: CREATINE KINASE MB 1.17 ng/mL (<4.55)
[2019-09-29 03:07] LABS: TROPONIN I < 0.012 ng/mL
[2019-09-29 06:17] VITALS: BP 154/85
--- NOTE | 2019-09-29 07:04 | ER Document Report ---
ED General - General Chief Complaint: Chest Tightness Stated Complaint: CHEST PAIN/DIFFICULTY BREATHING Time Seen by Provider: 09/29/19 06:20 Primary Care Provider: TYE LICEA MD [Primary Care Provider] - Follow up in 3-5 days KEELY REEVES MD [ACTIVE STAFF] - Follow up in 3-5 days Notes: 54-year-old female with history of hypertension, diabetes, and COPD presents with chest pain/tightness that started yesterday. Patient states it is intermittent in nature. Patient states it started after an argument with her . Patient states she has been under a lot of stress lately due to her awaiting heart transplant and being on LVAD. Patient states her chest pain/tightness has subsided. Patient states it felt like she was having a panic attack and states the last time she had one was 6 years ago. Patient states intermittent dyspnea. Patient denies any nausea/vomiting or dizziness. TRAVEL OUTSIDE OF THE [place] IN LAST 30 DAYS: No - Related Data Allergies/Adverse Reactions: latex Allergy (Verified 06/12/18 10:54) Sulfa (Sulfonamide Antibiotics) Allergy (Verified 06/12/18 10:54) Home Medications: ativan. Proair. Cetirizine. acetaminophen. trazadone. hydroxyzine. potassium. Omeprazole. Bupropion. rosuvastatin Ca. colace. Hydrochlorothiazide Past Medical History - Social History Smoking Status: Former Smoker Chew tobacco use (# tins/day): No Frequency of alcohol use: Rare Drug Abuse: Marijuana Family History: Reviewed & Not Pertinent Patient has suicidal ideation: No Patient has homicidal ideation: No - Past Medical History Cardiac Medical History: Reports: Hx Hypertension Pulmonary Medical History: Reports: Hx COPD Renal/ Medical History: Denies: Hx Peritoneal Dialysis Past Surgical History: Reports: Hx Orthopedic Surgery - Cervical spine fusion x 2 and lumbar spine surgery. Review of Systems - Review of Systems Notes: Constitutional: Negative for fever. HENT: Negative for sore throat. Eyes: Negative for visual changes. Cardiovascular: Positive for chest pain. Respiratory: Positive for shortness of breath. Gastrointestinal: Negative for abdominal pain, vomiting or diarrhea. Genitourinary: Negative for dysuria. Musculoskeletal: Negative for back pain. Skin: Negative for rash. Neurological: Negative for headaches, weakness or numbness. 10 point ROS negative except as marked above and in HPI. Physical Exam - Vital signs Vitals: Temp Pulse Resp BP Pulse Ox 98.0 F 82 16 182/119 H 100 09/28/19 23:44 09/28/19 23:44 09/28/19 23:44 09/28/19 23:44 09/28/19 23:44 - Notes Notes: GENERAL: Well-appearing, well-nourished and in no acute distress. HEAD: Atraumatic, normocephalic. EYES: Extraocular movements intact, sclera anicteric, conjunctiva are normal. NECK: Normal range of motion, supple without lymphadenopathy or JVD. LUNGS: Breath sounds clear to auscultation bilaterally and equal. No wheezes rales or rhonchi. HEART: Regular rate and rhythm without murmurs, rubs or gallops. EXTREMITIES: Normal range of motion, no pitting or edema. No clubbing or cyanosis. NEUROLOGICAL: Cranial nerves II through XII grossly intact. Normal speech, normal gait. PSYCH: Normal mood, normal affect. SKIN: Warm, Dry, normal turgor, no rashes or lesions noted. Course - Re-evaluation Re-evalutation: 09/29/19 Presentation of chest pain in an otherwise well appearing patient. Low clinical suspicion for ACS given clinical history, exam, EKG without ST elevations or depressions, and negative initial troponin. HEART score 2. PE also seems unlikely given clinical history, absence of tachycardia or dyspnea. Patient is PERC criteria negative. CXR without evidence of pneumothorax or pneumonia. No widened mediastinum. Aortic dissection also seems unlikely given history, symmetric pulses, CXR, and vitals. HEART Score: 2 Chest pain in a patient without evidence of cardiac or other serious etiology on workup today. I discussed with patient that, based on their age, risk factors and emergency department testing today, the likelihood that their symptoms are related to a heart attack is very low (estimated risk of heart attack or over the next 30 days of less than 1%). The patient demonstrates decision making capacity and has verbalized an understanding of these risks to me. Based on this, the patient has chosen to follow-up as an outpatient. Usual chest pain return precautions reviewed. The patient states understanding and agreement with this plan. - Vital Signs Vital signs: Temp Pulse Resp BP Pulse Ox 98.0 F 74 15 154/85 H 100 09/29/19 02:44 09/29/19 02:44 09/29/19 06:01 09/29/19 06:01 09/29/19 06:01 - Laboratory Result Diagrams: 09/29/19 02:04 09/29/19 02:04 Laboratory results interpreted by me: 09/29/19 09/29/19 02:04 02:04 RDW 15.8 H Carbon Dioxide 31 H Est GFR (MDRD) Non-Af 51 L Creatine Kinase 176 H Discharge - Discharge Clinical Impression: Chest pain Qualifiers: Chest pain type: unspecified Qualified Code(s): R07.9 - Chest pain, unspecified Condition: Stable Disposition: HOME, SELF-CARE Instructions: Chest Pain of Unclear Cause ([facility]) Additional Instructions: You were seen today for chest pain. The exact cause of your pain is unclear. However, based on your cardiac enzyme testing, chest x-ray, and EKG it does not appear that it is from an immediately life-threatening cause at this time. Although your testing here is normal is critical that you follow-up with your primary care physician for continued evaluation of this chest pain and possible stress testing. I recommended you see your physician within the next 24-48 hours to be evaluated for consideration of a stress test. Please return to emergency department immediately if you have worsening of your chest pain, shortness of breath, vomiting, become unable to exert yourself due to pain or difficulty breathing, you pass out, or have any pain that radiates into your arm s, jaw, or back. Please also return if you have any additional symptoms that are concerning to you. Referrals: TYE LICEA MD [Primary Care Provider] - Follow up in 3-5 days KEELY REEVES MD [ACTIVE STAFF] - Follow up in 3-5 days
--- NOTE | 2019-09-29 07:10 | RADIOLOGY REPORT (SQ) ---
EXAM: XR Chest, 2 Views EXAM DATE/TIME: 09/29/2019 6:45 AM CLINICAL HISTORY: The patient is 54 years old and is Female; chest pain TECHNIQUE: Frontal and lateral views of the chest. COMPARISON: Chest radiographs from 11/11/2018 FINDINGS: LUNGS: Unremarkable. No consolidation. PLEURAL SPACE: Unremarkable. No pneumothorax. HEART: Stable mild enlargement of the cardiac silhouette. MEDIASTINUM: Unremarkable. BONES/JOINTS: No acute osseous findings. IMPRESSION: No acute findings visualized in the chest.
--- NOTE | 2019-09-29 12:57 | EKG REPORT ---
SEVERITY:- NORMAL ECG - SINUS RHYTHM : Confirmed by: Noel Malagon 29-Sep-2019 12:57:13
== END 2019-09-29 07:37 | disposition home or self-care (01) ==
LOC: ER 23:21
DX: R07.9 Chest pain, unspecified (principal); I10 Essential (primary) hypertension; J44.9 Chronic obstructive pulmonary disease, unspecified; Z91.040 Latex allergy status; Z88.2 Allergy status to sulfonamides; Z98.1 Arthrodesis status
CPT/HCPCS: 36415; 71046; 80053; 82550; 82553; 84484; 85025; 93005; 93010; 99285

== ENCOUNTER → 2019-11-08 | Outpatient (CLI) | payer OTHER ==
--- NOTE | 2019-11-08 09:34 | RADIOLOGY REPORT (SQ) ---
EXAM DESCRIPTION: CT ABD/PELVIS NO ORAL OR IV COMPLETED DATE/TIME: 11/08/2019 7:44 am REASON FOR STUDY: SIGMOID DIVERTICULITIS (K57.32) K57.32 DVTRCLI OF LG INT W/O PERFORATION OR ABSCE SS W/O BLEE COMPARISON: 11/15/2018 TECHNIQUE: CT scan of the abdomen and pelvis performed without intravenous or oral contrast. Images reviewed with lung, soft tissue, and bone windows. Reconstructed coronal and sagittal MPR images revi ewed. All images stored on PACS. All CT scanners at this facility use dose modulation, iterative reconstruction, and/or weight based d osing when appropriate to reduce radiation dose to as low as reasonably achievable (ALARA). [facility]: Dose Right [facility]: CareDose [facility]: Dose Right [facility]: Teradose 4D [facility]: Smart [employer] RADIATION DOSE: CT Rad equipment meets quality standard of care and radiation dose reduction techniq ues were employed. CTDIvol: 20.8 mGy. DLP: 1066 mGy-cm.mGy. LIMITATIONS: None. FINDINGS: LOWER CHEST: No significant findings. No nodules or infiltrates. NON-CONTRASTED LIVER, SPLEEN, ADRENALS: Small cyst in the inferior right lobe of liver stable in appe arance. Spleen and adrenals are unremarkable. PANCREAS: No masses. No peripancreatic inflammatory changes. GALLBLADDER: No identified stones by CT criteria. No inflammatory changes to suggest cholecystitis. RIGHT KIDNEY AND URETER: No suspicious masses. Assessment limited by lack of IV contrast. No signif icant calcifications. No hydronephrosis or hydroureter. LEFT KIDNEY AND URETER: No suspicious masses. Assessment limited by lack of IV contrast. No signifi cant calcifications. No hydronephrosis or hydroureter. AORTA AND RETROPERITONEUM: No aneurysm. No retroperitoneal masses or adenopathy. BOWEL AND PERITONEAL CAVITY: Large amount of stool throughout the colon. Scattered sigmoid diverticu li. No acute diverticulitis. APPENDIX: Normal. PELVIS, BLADDER, AND ABDOMINAL WALL:There is a small umbilical hernia containing omental fat and a kn uckle of small bowel. No obstruction. BONES: No significant findings. OTHER: No other significant finding. IMPRESSION: Small umbilical hernia containing omental fat and a knuckle of small bowel. No obstruct ion. Scattered sigmoid diverticuli. No acute diverticulitis. COMMENT: Quality ID # [id number]: Final reports with documentation of one or more dose reduction techniques (e.g., Automated exposure control, adjustment of the mA and/or kV according to patient size, use of iterative reconstruction technique) TECHNICAL DOCUMENTATION: JOB ID: [id number] 2010 [employer]- All Rights Reserved Reading location - IP/workstation name: [email or web address]
== END ==
LOC: RAD 07:15
PROVIDERS: ATTEND Family Medicine Geriatric Medicine
DX: K57.32 Diverticulitis of large intestine without perforation or abscess without bleeding (principal)
CPT/HCPCS: 74176

== ENCOUNTER → 2019-11-16 | Outpatient (CLI) | payer OTHER ==
[2019-11-16 12:51] LABS: ABSOLUTE EOSINOPHILS # (AUTO) 0.1 10^3/uL (0.0-0.6); ABSOLUTE LYMPHOCYTES (AUTO) 3.3 10^3/uL (0.5-4.7); ABSOLUTE MONOCYTES (AUTO) 0.4 10^3/uL (0.1-1.4); ABSOLUTE NEUT (AUTO) 1.8 10^3/uL (1.7-8.2); BASOPHILS % (AUTO) 0.8 % (0-2); EOSINOPHILS % (AUTO) 2.3 % (0-6); HEMATOCRIT 39.3 % (36.0-47.0); HEMOGLOBIN 13.1 g/dL (12.0-15.5); LYMPHOCYTES % (AUTO) 59.2 % (13-45); MEAN CORPUSCULAR HEMOGLOBIN 26.8 pg (27.0-33.4); MEAN CORPUSCULAR HGB CONC 33.3 g/dL (32.0-36.0); MEAN CORPUSCULAR VOLUME 81 fl (80-97); MONOCYTES % (AUTO) 6.4 % (3-13); PLATELET COUNT 340 10^3/uL (150-450); RED BLOOD COUNT 4.88 10^6/uL (3.72-5.28); RED CELL DISTRIBUTION WIDTH 15.9 % (11.5-14.0); SEGMENTED NEUTROPHILS % (AUTO) 31.3 % (42-78); TOTAL CELLS COUNTED % (AUTO) 100 %; WHITE BLOOD COUNT 5.6 10^3/uL (4.0-10.5)
[2019-11-16 13:12] LABS: ANION GAP 9 (5-19); BLOOD UREA NITROGEN 11 mg/dL (7-20); CALCIUM 9.6 mg/dL (8.4-10.2); CARBON DIOXIDE 29 mmol/L (22-30); CHLORIDE 102 mmol/L (98-107); CHOLESTEROL 108.77 mg/dL (0-200); GLUCOSE 104 mg/dL (75-110); POTASSIUM 4.1 mmol/L (3.6-5.0); TRIGLYCERIDES 66 mg/dL (<150)
[2019-11-16 13:22] LABS: DIRECT LDL 60 mg/dL (<100)
[2019-11-17 09:36] LABS: CREATININE URINE 145.3 mg/dL (Not Estab.); MICROALBUMIN URINE 5.3 ug/mL (Not Estab.)
== END ==
LOC: OD 12:16
PROVIDERS: ATTEND Family Medicine Geriatric Medicine
DX: E11.9 Type 2 diabetes mellitus without complications (principal); E78.5 Hyperlipidemia, unspecified; Z79.899 Other long term (current) drug therapy
CPT/HCPCS: 36415; 80048; 80061; 82043; 82570; 84460; 85025

== ENCOUNTER → 2020-01-16 | Outpatient (CLI) | payer OTHER ==
[2020-01-16 11:59] VITALS: BP 163/99
--- NOTE | 2020-01-16 11:59 | ER RDC ASSESSMENT REPORT ---
Intake - In the Last 14 days Have you traveled outside [place]?: No Have you been in close contact with someone CONFIRMED: No Worked in Healthcare?: No - Symptoms Subjective Fever([place] feverish): No Chills: No Muscule Aches: Yes Runny Nose: Yes Sore Throat: No Cough (New or worsening chronic cough): Yes Shortness of breath: Yes Nausea or Vomiting: Yes --How many day(s)?: Nausea only Headache: Yes Abdominal Pain: Yes Diarrhea(3 or more loose stools in last 24 hours): Yes - Do you have any of the following Chronic lung disease: Asthma or emphysema or COPD: Yes Chronic Lung Disease Comment: History of COPD and sleep apnea Cystic Fibrosis: No Diabetes: Yes Diabetes Comment: Type 2 diabetes High Blood Pressure: Yes High Blood Pressure Comment: High blood pressure reports has not taking any medication this morning Cardiovascular Disease: Yes Cardiovascular Disease Comment: Reports a history of heart murmur Chronic Kidney Disease: No Chronic Liver Disease: No Chronic blood disorder like Sickle Cell Disease: No Weak immune system due to disease or medication: No Neurologic condition that limits movement: No Developmental delay - Moderate to Severe: No Recent (within past 2 weeks) or current : No Morbid Obesity (>100 pounds over ideal weight): No Obesity Comment: Height 5 feet 3 inches weight 201 pounds - Objective Temperature: 97.9 F Pulse Rate: 70 Respiratory Rate: 20 Blood Pressure: 163/99 O2 Sat by Pulse Oximetry: 98 Objective: Given above, testing performed: If Testing Performed: Test Specimen Type Sent to General - General Information source: Patient Notes: Ports started feeling sick on Wednesday muscle aches runny nose some nausea has not vomited reports a headache and abdominal pain has normally constipation and takes medication for that. Patient followed up with PCP Dr. Padilla of [facility]. sugested coming for Covid testing - Related Data Allergies/Adverse Reactions: latex Allergy (Verified 06/12/18 10:54) Sulfa (Sulfonamide Antibiotics) Allergy (Verified 06/12/18 10:54) Past Medical History - Social History Smoking Status: Current Every Day Smoker - Patient reports quit smoking June 2019 does still smoke marijuana Family History: Reviewed & Not Pertinent - Past Medical History Cardiac Medical History: Reports: Hx Hypertension Pulmonary Medical History: Reports: Hx COPD Renal/ Medical History: Denies: Hx Peritoneal Dialysis Past Surgical History: Reports: Hx Orthopedic Surgery - Cervical spine fusion x 2 and lumbar spine surgery. Physical Exam - General General appearance: Appears well, Alert In distress: None Notes: PHYSICAL EXAMINATION: GENERAL: Well-appearing and in no acute distress. HEAD: Atraumatic, normocephalic. EYES: sclera anicteric, conjunctiva are normal. ENT: nares patent. Moist mucous membranes. NECK: Normal range of motion, supple without lymphadenopathy LUNGS: CTAB and equal. No wheezes rales or rhonchi. Resp even and unlabored. Lung sounds clear. HEART: Regular rate and rhythm without murmurs ABDOMEN: Soft, nontender, normal bowel sounds, no guarding. EXTREMITIES: No cyanosis. NEUROLOGICAL: Normal speech. PSYCH: Normal mood, normal affect. SKIN: Warm, Dry, normal turgor, Diagnostic Results Laboratory Results: Patient informed of negative rapid strep and negative rapid flu results. pending strep culture pending COVID testing results. Patient provided instructions regarding COVID to include: As a person under investigation for Covid 19, the [facility] and Human Services, division of public health advises you to adhere to the following guidance until your test results are reported to you. If your test result is positive, you will receive additional information from your provider and your local health department at that time. Remain at home until you are cleared by the health provider or public health authorities. Keep a log of visitors to your home, notify any visitors to your home of your isolation status. If you plan to move to a new address or leave the [facility], notify the local health department in your County. Call your doctor or seek care if you have an urgent medical need. Before seeking medical care, call ahead to get instructions from the provider before arriving at the medical office clinic or hospital. Notify them that you are being tested for the virus that causes Covid 19 so that arrangements can be made, as necessary, to prevent transmission to others in the healthcare setting. Next, notify the local health department in your county. If a medical emergency arises and you need to call 911, inform the first responders that you are being tested for the virus that causes Covid 19. Next, notify the local health department in your county Patient Education/Counseling Counseling/Education: Patient presents with upper respiratory symptoms worrisome for possible Covid 19. Patient does not have emergency worring symptoms such as difficulty breathing, shortness of breath, chest pain, pressure, confusion or cyanosis. Patient appears suitable for discharge. Patient instructed to follow up today with Dr. Padilla. TO ED for persistent or worsening symptoms. Patient's vital signs are stable and patient is nontoxic in appearance. Good return precautions have been discussed with patient, patient verbalized understanding and is agreeable with discharge plan of care at this time. RDC Discharge - Discharge Clinical Impression: COVID - 19 SCREENING Condition: Stable Disposition: Home; Selfcare
[2020-01-16 13:44] LABS: A TYPE INFLUENZA AG NEGATIVE (NEGATIVE); B INFLUENZA AG NEGATIVE (NEGATIVE)
== END ==
LOC: RDC 11:06
PROVIDERS: ATTEND Nurse Practitioner Family
DX: Z20.828 Contact with and (suspected) exposure to other viral communicable diseases (principal)
CPT/HCPCS: 87070; 87635; 87804; 87880; 99211

== ENCOUNTER → 2020-02-26 | Outpatient (CLI) | payer OTHER ==
[2020-02-26 12:04] LABS: ABSOLUTE BASOPHILS # (AUTO) 0.1 10^3/uL (0.0-0.2); ABSOLUTE EOSINOPHILS # (AUTO) 0.2 10^3/uL (0.0-0.6); ABSOLUTE LYMPHOCYTES (AUTO) 2.9 10^3/uL (0.5-4.7); ABSOLUTE MONOCYTES (AUTO) 0.4 10^3/uL (0.1-1.4); ABSOLUTE NEUT (AUTO) 3.6 10^3/uL (1.7-8.2); EOSINOPHILS % (AUTO) 2.2 % (0-6); HEMATOCRIT 34.9 % (36.0-47.0); HEMOGLOBIN 11.4 g/dL (12.0-15.5); LYMPHOCYTES % (AUTO) 40.8 % (13-45); MEAN CORPUSCULAR HEMOGLOBIN 26.7 pg (27.0-33.4); MEAN CORPUSCULAR HGB CONC 32.8 g/dL (32.0-36.0); MEAN CORPUSCULAR VOLUME 81 fl (80-97); MONOCYTES % (AUTO) 5.7 % (3-13); PLATELET COUNT 701 10^3/uL (150-450); RED BLOOD COUNT 4.29 10^6/uL (3.72-5.28); SEGMENTED NEUTROPHILS % (AUTO) 50.3 % (42-78); TOTAL CELLS COUNTED % (AUTO) 100 %; WHITE BLOOD COUNT 7.2 10^3/uL (4.0-10.5)
[2020-02-26 12:27] LABS: ANION GAP 8 (5-19); BLOOD UREA NITROGEN 9 mg/dL (7-20); CALCIUM 10.6 mg/dL (8.4-10.2); CARBON DIOXIDE 30 mmol/L (22-30); CHLORIDE 98 mmol/L (98-107); GLUCOSE 117 mg/dL (75-110); POTASSIUM 4.8 mmol/L (3.6-5.0)
[2020-02-27 12:07] LABS: CHOLESTEROL 144.11 mg/dL (0-200); TRIGLYCERIDES 82 mg/dL (<150)
[2020-02-27 12:18] LABS: DIRECT LDL 68 mg/dL (<100)
== END ==
LOC: OD 11:25
PROVIDERS: ATTEND Family Medicine Geriatric Medicine
DX: I10 Essential (primary) hypertension (principal); E78.5 Hyperlipidemia, unspecified; E11.9 Type 2 diabetes mellitus without complications; Z79.899 Other long term (current) drug therapy; Z29.9 Encounter for prophylactic measures, unspecified
CPT/HCPCS: 36415; 80048; 80061; 82043; 82570; 83036; 84460; 85025

== ENCOUNTER 2020-05-19 19:30 | Emergency (ER) | payer OTHER ==
--- NOTE | 2020-05-19 19:55 | ER Document Report ---
ED Medical Screen (RME) - General Chief Complaint: Chest Pain Stated Complaint: CHEST/BACK PAIN Time Seen by Provider: 05/19/20 19:44 Primary Care Provider: TYE LICEA MD [Primary Care Provider] - Follow up as needed Mode of Arrival: Wheelchair Information source: Patient Notes: 54-year-old female presents to ED for complaint of chest pain off and on yesterday and today. She states is in the chest and upper back.. She states she was recently here for pneumonia after spending many days at [facility] with her . He has LVAD and is waiting for heart transplant. She sent him home because she does not want him in the hospital around everything that is going on. She states her last spine surgery was on February 12 and she just took her neck brace off 13 days ago. She just wanted to be checked out thoroughly after all this been going on. She states she did stop smoking in June 2019 she still socially drinks and does use marijuana. Patient is alert oriented respirations regular nonlabored speaking in full sentences. I have greeted and performed a rapid initial assessment of this patient. A comprehensive ED assessment and evaluation of the patient, analysis of test results and completion of medical decision making process will be conducted by an additional ED providers. TRAVEL OUTSIDE OF THE [place] IN LAST 30 DAYS: No - Related Data Allergies/Adverse Reactions: latex Allergy (Verified 06/12/18 10:54) Sulfa (Sulfonamide Antibiotics) Allergy (Verified 06/12/18 10:54) Past Medical History - Past Medical History Cardiac Medical History: Reports: Hx Hypertension Pulmonary Medical History: Reports: Hx COPD Renal/ Medical History: Denies: Hx Peritoneal Dialysis Past Surgical History: Reports: Hx Orthopedic Surgery - Cervical spine fusion x 2 and lumbar spine surgery. Physical Exam - Vital signs Vitals: Temp Pulse Resp BP Pulse Ox 98.1 F 93 18 133/82 H 98 05/19/20 19:44 05/19/20 19:44 05/19/20 19:44 05/19/20 19:44 05/19/20 19:44 Course - Vital Signs Vital signs: Temp Pulse Resp BP Pulse Ox 98.1 F 93 18 133/82 H 98 05/19/20 19:44 05/19/20 19:44 05/19/20 19:44 05/19/20 19:44 05/19/20 19:44 Doctor's Discharge - Discharge Referrals: TYE LICEA MD [Primary Care Provider] - Follow up as needed
[2020-05-19] MEDS ORDERED: ASPIRIN 81 MG TABLET, CHEWABLE PO ONE (20:06)
--- NOTE | 2020-05-19 20:57 | RADIOLOGY REPORT (SQ) ---
EXAM DESCRIPTION: [facility]: XR CHEST 2 VIEWS Views: 2 CLINICAL HISTORY: 55 years Female; Chest pain on and off yesterday and today. ; COMPARISON: 09/29/2019 FINDINGS: Lungs: Lungs are clear, with no focal infiltrate, pneumothorax, or pleural effusion. Mediastinum: Mediastinum is within normal limits for this positioning. Bones: Cervical spine fixation hardware is partially visualized. IMPRESSION: 1. No acute cardiothoracic abnormality.
[2020-05-19 21:26] LABS: ABSOLUTE EOSINOPHILS # (AUTO) 0.1 10^3/uL (0.0-0.6); ABSOLUTE LYMPHOCYTES (AUTO) 3.2 10^3/uL (0.5-4.7); ABSOLUTE MONOCYTES (AUTO) 0.5 10^3/uL (0.1-1.4); ABSOLUTE NEUT (AUTO) 3.4 10^3/uL (1.7-8.2); BASOPHILS % (AUTO) 0.6 % (0-2); EOSINOPHILS % (AUTO) 1.1 % (0-6); HEMATOCRIT 36.9 % (36.0-47.0); HEMOGLOBIN 12.2 g/dL (12.0-15.5); LYMPHOCYTES % (AUTO) 44.4 % (13-45); MEAN CORPUSCULAR HEMOGLOBIN 26.3 pg (27.0-33.4); MEAN CORPUSCULAR VOLUME 80 fl (80-97); PLATELET COUNT 332 10^3/uL (150-450); RED BLOOD COUNT 4.63 10^6/uL (3.72-5.28); RED CELL DISTRIBUTION WIDTH 16.4 % (11.5-14.0); SEGMENTED NEUTROPHILS % (AUTO) 46.9 % (42-78); TOTAL CELLS COUNTED % (AUTO) 100 %; WHITE BLOOD COUNT 7.3 10^3/uL (4.0-10.5)
[2020-05-19 21:31] LABS: INTERNATIONAL RATION (INR) 0.96
[2020-05-19 21:46] LABS: ALBUMIN 4.8 g/dL (3.5-5.0); ALKALINE PHOSPHATASE 95 U/L (38-126); ANION GAP 10 (5-19); ASPARTATE AMINO TRANSFERASE 27 U/L (14-36); BILIRUBIN,DIRECT 0.3 mg/dL (0.0-0.4); BILIRUBIN,TOTAL 0.6 mg/dL (0.2-1.3); BLOOD UREA NITROGEN 14 mg/dL (7-20); CALCIUM 10.3 mg/dL (8.4-10.2); CARBON DIOXIDE 31 mmol/L (22-30); CHLORIDE 99 mmol/L (98-107); CREATINE KINASE 110 U/L (30-135); GLUCOSE 139 mg/dL (75-110); POTASSIUM 4.1 mmol/L (3.6-5.0)
[2020-05-19 23:07] LABS: APPEARANCE,URINE TURBID; BILIRUBIN,URINE NEGATIVE (NEGATIVE); COLOR,URINE YELLOW; GLUCOSE, URINE NEGATIVE (NEGATIVE); KETONES,URINE NEGATIVE (NEGATIVE); LEUKOCYTE ESTERASE,URINE NEGATIVE (NEGATIVE); NITRITE,URINE NEGATIVE (NEGATIVE); PROTEIN,URINE 30 mg/dL (NEGATIVE); URINE SPECIFIC GRAVITY 1.027; UROBILINOGEN,URINE NEGATIVE mg/dL (<2.0)
[2020-05-20] MEDS ORDERED: CYCLOBENZAPRINE HCL 10 MG TABLET PO ONE (00:13)
[2020-05-20] MEDS ORDERED: KETOROLAC TROMETHAMINE INJ/PF 30 MG/1 ML SDV IV ONE (00:15)
--- NOTE | 2020-05-20 00:23 | EKG REPORT ---
SEVERITY:- BORDERLINE ECG - SINUS RHYTHM PROBABLE LEFT ATRIAL ABNORMALITY : Confirmed by: Noel Malagon 20-May-2020 00:23:18
--- NOTE | 2020-05-20 00:23 | ER Document Report ---
ED General - General Chief Complaint: Chest Pain Stated Complaint: CHEST/BACK PAIN Time Seen by Provider: 05/19/20 19:44 Primary Care Provider: TYE LICEA MD [Primary Care Provider] - Follow up as needed Mode of Arrival: Wheelchair TRAVEL OUTSIDE OF THE [place] IN LAST 30 DAYS: No - HPI Context: This is a 55-year-old female presenting to the emergency department with a chief complaint of chest and back pain. Patient states that she was washing dishes after supper around 630 and noticed sudden onset of left-sided chest and back pain with movement of her left shoulder. Patient states that the pain was sharp and severe and a 5 on a scale of 0-5. Patient states that she "had a few oxy she had left over from her spinal fusion done back in January 2020" and took 1 of those along with a dose of gabapentin and a dose of Lyrica because she was in omalley ch "severe pain." Patient states that she got very minimal relief with this. Patient states that movement of her left upper extremity and her torso exacerbates the pain. She states that nothing seems to alleviate the pain. Patient states that she used to be a smoker but stopped in June 2019. However she does still use of marijuana. Patient states that she also socially drinks. Patient states that she just took her neck brace off from her surgery 13 days ago. Patient states that she does not know exactly what is going on with her but it scared her. Patient also mentioned that she thinks this could be as simple as a muscle spasm. Patient states that she has been prescribed methocarbamol in the past and has a whole bottle at home but does not like to take it because it makes her mouth "so dry and makes her belch. Associated symptoms: Other Exacerbated by: Other - See HPI see HPI Relieved by: Other - See HPI Similar symptoms previously: Yes - Related Data Allergies/Adverse Reactions: latex Allergy (Verified 06/12/18 10:54) Sulfa (Sulfonamide Antibiotics) Allergy (Verified 06/12/18 10:54) Home Medications: lyrica, januvia, gabapentin Past Medical History - General Information source: Patient - Social History Smoking Status: Former Smoker Frequency of alcohol use: None Drug Abuse: Marijuana Family History: Reviewed & Not Pertinent Patient has suicidal ideation: No Patient has homicidal ideation: No - Past Medical History Cardiac Medical History: Reports: Hx Hypertension Pulmonary Medical History: Reports: Hx COPD Renal/ Medical History: Denies: Hx Peritoneal Dialysis Past Surgical History: Reports: Hx Orthopedic Surgery - Cervical spine fusion x 2 and lumbar spine surgery. Review of Systems - Review of Systems Constitutional: No symptoms reported EENT: No symptoms reported Cardiovascular: Chest pain Respiratory: No symptoms reported Gastrointestinal: No symptoms reported Genitourinary: No symptoms reported Female Genitourinary: No symptoms reported Musculoskeletal: Back pain Skin: No symptoms reported Hematologic/Lymphatic: No symptoms reported Neurological/Psychological: No symptoms reported -: Yes All other systems reviewed and negative Physical Exam - Vital signs Vitals: Temp Pulse Resp BP Pulse Ox 98.1 F 93 18 133/82 H 98 05/19/20 19:44 05/19/20 19:44 05/19/20 19:44 05/19/20 19:44 05/19/20 19:44 - Notes Notes: CONSTITUTIONAL [Vital signs reviewed, Patient appears comfortable, Alert and oriented X 3, Normal stature.] HEAD [Atraumatic, Normocephalic.] EYES [Eyes are normal to inspection, No discharge from eyes, Extraocular muscles intact, Sclera are normal, Conjunctiva are normal.] ] NECK [Normal ROM, No jugular venous distention, No meningeal signs, no carotid bruit.] RESPIRATORY CHEST [Chest is nontender, Breath sounds normal, No respiratory distress.] CARDIOVASCULAR [RRR, No murmurs, Normal S1 S2, No rub, No gallop.] ABDOMEN [Abdomen is nontender, No pulsatile masses, No other masses, Bowel sounds normal, No distension, No peritoneal signs, No hernias.] BACK [There is no CVA Tenderness, There is no tenderness to palpation, Normal inspection.] UPPER EXTREMITY [Inspection normal, No cyanosis, No clubbing, No edema, 2+ radial pulses.] LOWER EXTREMITY [Inspection normal, No cyanosis, No clubbing, No edema, No calf tenderness, 2+ femoral pulses.] NEURO [No focal motor deficits, No focal sensory deficits, Speech normal.] SKIN [Skin is warm, Skin is dry, Skin is normal color.] LYMPHATIC [No adenopathy in neck.] PSYCHIATRIC [Normal affect. ] Course - Re-evaluation Re-evalutation: 05/20/20 02:56 Results of ED MSE discussed with patient. All questions were answered prior to discharge. Emergency signs and symptoms, reasons to return to the emergency d epartment discussed with patient. Patient states that she is still having cramping in her chest and is also having cramping in her right hand. She states that she has had problems with statins in the past in terms of muscle cramping and just remembered that her doctor put her on another type of statin recently. This MD advised the patient to discuss potential side effects and whether or not to continue the statin medication given her history of side effects from statins. 05/20/20 02:57 - Vital Signs Vital signs: Temp Pulse Resp BP Pulse Ox 98.1 F 93 21 H 150/95 H 99 05/19/20 19:44 05/19/20 19:44 05/20/20 01:01 05/20/20 00:01 05/20/20 02:17 - Laboratory Result Diagrams: 05/19/20 21:00 05/19/20 21:00 Laboratory results interpreted by me: 05/19/20 05/19/20 05/19/20 21:00 21:00 21:00 MCH 26.3 L RDW 16.4 H Carbon Dioxide 31 H Est GFR (MDRD) Non-Af 53 L Glucose 139 H Calcium 10.3 H Urine Protein 30 H - Diagnostic Test Radiology reviewed: Reports reviewed - EKG Interpretation by Me Additional EKG results interpreted by me: 05/20/20 00:26 EKG obtained on 05/19/2020 at 1937 hrs. was interpreted by this MD. Findings: Normal sinus rhythm, rate 85, normal axis, IN interval within normal limits, P waves preceding QRS complexes, QRS complex appears narrow, QTC is 424, there are no obvious patterns of ST segment elevation or depression present to suggest acute myocardial ischemia or infarction. EKG was compared to EKG done on 09/29/2019. Morphology is grossly similar, and there appear to be no acute changes between EKGs. 05/20/20 00:28 Discharge - Discharge Clinical Impression: Muscle cramps Chest pain Qualifiers: Chest pain type: unspecified Qualified Code(s): R07.9 - Chest pain, unspecified Condition: Stable Disposition: HOME, SELF-CARE Instructions: Chest Pain of Unclear Cause ([facility]) Additional Instructions: Return to the Emergency Department without delay if any worse. Be certain to follow-up with your doctor to discuss your use of statin medication and whether you might potentially be having muscle cramps as a side effect. HOME CARE INSTRUCTIONS & INFORMATION: Thank you for choosing us for your medical needs. We hope you're satisfied with the care you received. After you leave, you must properly care for your problem and, at the same time, observe i ts progress. Any condition can change. Some illnesses can change rapidly over hours or days. If your condition worsens, return to the Emergency Department or see your physician promptly. ABOUT YOUR X-RAYS AND EKG'S: If you had an EKG or X-rays taken, they have been read by the Emergency Physician. The X-rays and EKG's will also be read by a Radiologist or Drywall Hanger Framer within 24 hours. If discrepancies are noted, you will be notified by telephone. Please be certain the ED has a correct telephone number & address where you can be reached. Also, realize that some fractures or abnormalities do not show up on initial X-rays. If your symptoms continue, see your physician. ABOUT YOUR LABORATORY TEST: If you had laboratory tests, the results have been reviewed by the Emergency Physician. Some test results (for example cultures) may not be available for several days. You will be contacted if any test result shows you need additional treatment. Please be certain the ED has a correct telephone number and address where you can be reached. ABOUT YOUR MEDICATIONS: You will receive instructions on how to take your medicine on the prescription label you receive. Additional information may be provided by the Pharmacy. If you have questions afterwards, call the ED for clarification or further instructions. Some prescribed medications may cause drowsiness. Do not perform tasks such as driving a car or operating machinery without consulting your Pharmacist. If you feel you need a refill of pain medication, your condition will need re-evaluation. Please do not call for a refill of any medication. ABOUT YOUR SIGNATURE: Signature of this document acknowledges to followin. Understanding that you received emergency treatment and that you may be released before al medical problems are known or treated. Please be certain the ED has a correct phone number & address where you can be reached. 2. Acknowledgement that you will arrange for follow-up care as recommended. 3. Authorization for the Emergency Physician to provide information to your follow-up Physician in order to maximize your care. AT ANY TIME, IF YOUR SYMPTOMS CHANGE SIGNIFICANTLY OR WORSEN OR YOU DEVELOP NEW SYMPTOMS, RETURN TO THE EMERGENCY DEPARTMENT IMMEDIATELY FOR RE-EVALUATION. OUR GOAL IS TO PROVIDE EXCELLENT MEDICAL CARE! WE HOPE THAT WE HAVE MET YOUR EXPECTATIONS DURING YOUR EMERGENCY DEPARTMENT VISIT AND THAT YOU FEEL YOU HAVE RECEIVED EXCELLENT CARE! Prescriptions: Cyclobenzaprine HCl [Flexeril 10 mg Tablet] 10 mg PO TIDP PRN #15 tab PRN Reason: Muscle cramps Referrals: TYE LICEA MD [Primary Care Provider] - 05/20/20
[2020-05-20] MEDS ORDERED: OXYCODONE-ACETAMINOPHEN 5-325 MG TABLET PO ONE (02:55)
[2020-05-20 03:24] VITALS: BP 143/90
== END 2020-05-20 03:31 | disposition home or self-care (01) ==
LOC: ER 19:30
DX: R25.2 Cramp and spasm (principal); R07.9 Chest pain, unspecified; M54.9 Dorsalgia, unspecified; I10 Essential (primary) hypertension; J44.9 Chronic obstructive pulmonary disease, unspecified; Z98.1 Arthrodesis status; Z79.899 Other long term (current) drug therapy; Z87.891 Personal history of nicotine dependence; Z91.040 Latex allergy status; Z88.2 Allergy status to sulfonamides
CPT/HCPCS: 36415; 71046; 80053; 81001; 82550; 83690; 83735; 84484; 85025; 85379; 85610; 93005; 93010; 96374; 99285

== ENCOUNTER → 2020-06-21 | Outpatient (CLI) | payer OTHER ==
--- NOTE | 2020-06-24 13:13 | WOMENS IMAGING REPORT ---
EXAM DESCRIPTION: BILAT SCREENING MAMMO W/CAD IMAGES COMPLETED DATE/TIME: 06/21/2020 11:02 am REASON FOR STUDY: Z12.31 ENCNTR SCREEN MAMMOGRAM FOR MALIGNANT NEOPLASM OF BREAST Z12.31 ENCNTR SCR EEN MAMMOGRAM FOR MALIGNANT NEOPLASM OF EMRE COMPARISON: Digital bilateral screening mammograms dated 06/19/2019 and 06/08/2018. EXAM PARAMETERS: Standard craniocaudal and mediolateral oblique views of each breast recorded using digital acquisition. Read with the assistance of CAD. .[facility] - Relive Joint Cutter Machine Version 9.2 LIMITATIONS: None. FINDINGS: Findings present which are benign by mammographic criteria. No suspicious masses, calcifi cations or architectural distortion. Pertinent benign findings: Stable small masses in the breast. Benign mammographic findings may include one or more of the following: Smooth masses, popcorn/rim/co arse calcifications, asymmetries, post-procedure changes, and lesions with long-standing stability. IMPRESSION: BENIGN MAMMOGRAPHIC FINDINGS. BIRADS 2 BREAST DENSITY: b. There are scattered areas of fibroglandular density. BIRAD: ASSESSMENT: 2 BENIGN FINDING(S) RECOMMENDATION: 1. ROUTINE SCREENING COMMENT: The patient has been notified of the results by letter per MQSA requirements. Additional no tification policies are in place for contacting patient with suspicious or incomplete findings. Quality ID #[id number]: The [employer] recommends an annual screening mammogram for women aged 40 years or over. This facility utilizes a reminder system to ensure that all patients receive reminder letters, and/or direct phone calls for appointments. This includes reminders for routine scr eening mammograms, diagnostic mammograms, or other Breast Imaging Interventions when appropriate. Th is patient will be placed in the appropriate reminder system. TECHNICAL DOCUMENTATION: FINDING NUMBER: (1) ASSESSMENT: (1) JOB ID: [id number] 2010 [employer]- All Rights Reserved Reading location - IP/workstation name: [id number]
== END ==
LOC: WI 10:40
PROVIDERS: ATTEND Family Medicine Geriatric Medicine
DX: Z12.31 Encounter for screening mammogram for malignant neoplasm of breast (principal)
CPT/HCPCS: 77067

== ENCOUNTER → 2020-09-16 | Outpatient (CLI) | payer OTHER ==
[2020-09-16 17:39] LABS: ANION GAP 10 (5-19); BLOOD UREA NITROGEN 11 mg/dL (7-20); CARBON DIOXIDE 29 mmol/L (22-30); CHLORIDE 101 mmol/L (98-107); CHOLESTEROL 234.27 mg/dL (0-200); GLUCOSE 125 mg/dL (75-110); POTASSIUM 3.8 mmol/L (3.6-5.0); TRIGLYCERIDES 106 mg/dL (<150)
[2020-09-16 17:50] LABS: DIRECT LDL 147 mg/dL (<100)
== END ==
LOC: OD 16:32
PROVIDERS: ATTEND Family Medicine Geriatric Medicine
DX: E78.5 Hyperlipidemia, unspecified (principal); N18.30 Chronic kidney disease, stage 3 unspecified; Z79.899 Other long term (current) drug therapy
CPT/HCPCS: 36415; 80048; 80061; 82306; 84460